=== PATIENT | female | born 1940 | race Caucasian/White ===

== ENCOUNTER → 2023-09-12 13:26 | Outpatient (REF) | payer MEDICARE, OTHER, SELFPAY | LOC: HWLAB 13:26 | PROVIDERS: ATTENDING PHYSICIAN Nurse Practitioner Family; FAMILY PHYSICIAN Family Medicine | DX: A49.8 Other bacterial infections of unspecified site (principal) | CPT/HCPCS: 87070; 87077; 87186; 87205 ==

== ENCOUNTER → 2023-10-09 13:18 | Outpatient (REF) | payer MEDICARE, OTHER, SELFPAY | LOC: HWLAB 13:18 | PROVIDERS: ATTENDING PHYSICIAN Nurse Practitioner Family; FAMILY PHYSICIAN Family Medicine | DX: A48.8 Other specified bacterial diseases (principal) | CPT/HCPCS: 87070; 87077; 87186; 87205 ==

== ENCOUNTER → 2023-10-13 13:27 | Outpatient (REF) | payer MEDICARE, OTHER, SELFPAY | LOC: HWLAB 13:27 | PROVIDERS: ATTENDING PHYSICIAN Nurse Practitioner Family; FAMILY PHYSICIAN Family Medicine | DX: J47.9 Bronchiectasis, uncomplicated (principal) | CPT/HCPCS: 87070; 87186; 87205 ==

== ENCOUNTER → 2023-11-23 14:31 | Outpatient (REF) | payer MEDICARE, OTHER, SELFPAY | LOC: HWRAD 14:31 | PROVIDERS: ATTENDING PHYSICIAN Specialist; FAMILY PHYSICIAN Family Medicine | DX: M48.062 Spinal stenosis, lumbar region with neurogenic claudication (principal) | CPT/HCPCS: 72120 ==

== ENCOUNTER → 2023-11-29 16:36 | Outpatient (REF) | payer MEDICARE, OTHER, SELFPAY ==
[2023-11-29 23:35] LABS: IgA 164 mg/dl (70-400); IgG 775 mg/dl (700-1600); IgM 66 mg/dl (40-230)
[2023-12-01 17:53] LABS: IgE 16 kU/L (<=214)
[2023-12-01 19:50] LABS: IgG Subclass 1 414 mg/dL (240-1118); IgG Subclass 2 171 mg/dL (124-549); IgG Subclass 3 57 mg/dL (21-134); IgG Subclass 4 53 mg/dL (1-123)
[2023-12-02 18:12] LABS: Myeloperoxidase Antibody 0 AU/mL (0-19); Serine Protease-3, IgG 0 AU/mL (0-19)
[2023-12-05 04:47] LABS: Aspergillus Abs by ID Not Detected (Not Detected)
== END ==
LOC: REG 16:36
PROVIDERS: ATTENDING PHYSICIAN Internal Medicine Critical Care Medicine
DX: R06.02 Shortness of breath (principal); Z87.01 Personal history of pneumonia (recurrent); J21.9 Acute bronchiolitis, unspecified; Z86.19 Personal history of other infectious and parasitic diseases
CPT/HCPCS: 36415; 82784; 82785; 82787; 83516; 86606

== ENCOUNTER → 2023-12-01 13:41 | Outpatient (REF) | payer MEDICARE, OTHER, SELFPAY | LOC: HWLAB 13:41 | PROVIDERS: ATTENDING PHYSICIAN Internal Medicine Critical Care Medicine; FAMILY PHYSICIAN Family Medicine | DX: R06.02 Shortness of breath (principal); Z87.01 Personal history of pneumonia (recurrent); J21.9 Acute bronchiolitis, unspecified | CPT/HCPCS: 87070; 87077; 87185; 87205 ==

== ENCOUNTER → 2023-12-06 10:24 | Outpatient (REF) | payer MEDICARE, OTHER, SELFPAY ==
[2023-12-06 16:57] LABS: TSH 1.09 uIU/ml (0.47-4.68)
== END ==
LOC: HWRAD 10:24
PROVIDERS: Otolaryngology; ATTENDING PHYSICIAN Internal Medicine Cardiovascular Disease; FAMILY PHYSICIAN Family Medicine; OTHER PHYSICIAN Internal Medicine Cardiovascular Disease; OTHER PHYSICIAN Specialist; REFERRING PHYSICIAN Internal Medicine Critical Care Medicine
DX: E04.2 Nontoxic multinodular goiter (principal); E07.9 Disorder of thyroid, unspecified
CPT/HCPCS: 36415; 76536; 84443; 93306

== ENCOUNTER → 2023-12-18 12:21 | Outpatient (REF) | payer MEDICARE, OTHER, SELFPAY | LOC: HWLAB 12:21 | PROVIDERS: ATTENDING PHYSICIAN Internal Medicine Critical Care Medicine; FAMILY PHYSICIAN Family Medicine | DX: J41.1 Mucopurulent chronic bronchitis (principal); J21.9 Acute bronchiolitis, unspecified; Z86.19 Personal history of other infectious and parasitic diseases; Z87.01 Personal history of pneumonia (recurrent) | CPT/HCPCS: 87070; 87071; 87077; 87185; 87205 ==

== ENCOUNTER → 2024-01-04 13:42 | Outpatient (REF) | payer MEDICARE, OTHER, SELFPAY | LOC: RAD 13:42 | PROVIDERS: ATTENDING PHYSICIAN Internal Medicine Cardiovascular Disease; FAMILY PHYSICIAN Family Medicine | DX: I73.9 Peripheral vascular disease, unspecified (principal) | CPT/HCPCS: 93922; 93925 ==

== ENCOUNTER → 2024-01-09 07:35 | Outpatient (REF) | payer MEDICARE, OTHER, SELFPAY ==
[2024-01-09 09:58] LABS: ALT (SGPT) 35 U/L (0-35); AST (SGOT) 38 U/L (14-36); Albumin 4.2 g/dl (3.5-5.0); Alkaline Phosphatase 80 U/L (38-126); Blood Urea Nitrogen 7 mg/dl (7-17); Calcium 9.5 mg/dl (8.4-10.2); Carbon Dioxide 29 mmol/L (22-30); Chloride 101 mmol/L (98-107); Direct Bilirubin 0.3 mg/dl (0.0-0.4); Glucose 71 mg/dl (70-99); Potassium 5.2 mmol/L (3.5-5.1); Sodium 136 mmol/L (135-145); Total Bilirubin 0.6 mg/dl (0.2-1.3); Total Cholesterol 260 mg/dl (50-199); Total Protein 6.8 g/dl (6.3-8.2); Triglyceride 57 mg/dl (10-149); Very Low Density Lipoprotein 11 mg/dl (0-30); eGFR > 60.00
[2024-01-09 10:09] LABS: HDL Cholesterol 140 mg/dl; LDL Cholesterol, Calculated 109 mg/dl
== END ==
LOC: HWLAB 07:35
PROVIDERS: ATTENDING PHYSICIAN Internal Medicine Cardiovascular Disease; FAMILY PHYSICIAN Family Medicine; OTHER PHYSICIAN Internal Medicine Critical Care Medicine; OTHER PHYSICIAN Internal Medicine Rheumatology; REFERRING PHYSICIAN Specialist
DX: E78.2 Mixed hyperlipidemia (principal)
CPT/HCPCS: 36415; 80053; 80061; 82248

== ENCOUNTER → 2024-02-05 11:23 | Outpatient (REF) | payer MEDICARE, OTHER, SELFPAY | LOC: HWWDC 11:23 | PROVIDERS: ATTENDING PHYSICIAN Obstetrics & Gynecology; FAMILY PHYSICIAN Family Medicine; REFERRING PHYSICIAN Specialist | DX: Z12.31 Encounter for screening mammogram for malignant neoplasm of breast (principal); M48.062 Spinal stenosis, lumbar region with neurogenic claudication | CPT/HCPCS: 72120; 77063; 77067 ==

== ENCOUNTER → 2024-02-07 07:39 | Outpatient (REF) | payer MEDICARE, OTHER, SELFPAY | LOC: EMG 07:39 | PROVIDERS: ATTENDING PHYSICIAN Specialist | DX: M48.062 Spinal stenosis, lumbar region with neurogenic claudication (principal); R20.0 Anesthesia of skin | CPT/HCPCS: 95886; 95910 ==

== ENCOUNTER → 2024-04-03 13:16 | Outpatient (REF) | payer MEDICARE, OTHER, SELFPAY | LOC: MRI 3T 13:16 | PROVIDERS: ATTENDING PHYSICIAN Internal Medicine Endocrinology, Diabetes & Metabolism; FAMILY PHYSICIAN Family Medicine | DX: K86.2 Cyst of pancreas (principal) | CPT/HCPCS: 74183; A9575 ==

== ENCOUNTER → 2024-05-08 07:34 | Outpatient (REF) | payer MEDICARE, OTHER, SELFPAY ==
[2024-05-08 09:41] LABS: % Basophils 0.8 % (0-2); % Eosinophils 5.8 % (0-6); % Immature Granulocytes 0.5 % (0-0.5); % Lymphocytes 27.8 % (20.5-51.1); % Monocytes 9.7 % (1.7-9.3); % Neutrophils 55.4 % (42.2-75.2); Absolute Basophils 0.1 10^3/uL (0-0.2); Absolute Eosinophils 0.4 10^3/uL (0-0.7); Absolute Lymphocytes 1.8 10^3/uL (1.2-3.4); Absolute Monocytes 0.6 10^3/uL (0.1-0.6); Absolute Neutrophils 3.6 10^3/uL (1.4-6.5); Hematocrit 40.9 % (37.0-47.0); Hemoglobin 13.7 g/dL (12.0-16.0); Mean Corp Hgb Conc. 33.5 g/dL (33.0-37.0); Mean Corpuscular Hgb 30.6 pg (27.0-31.0); Mean Corpuscular Volume 91.3 fL (81.0-99.0); Mean Platelet Volume 9.3 fL (7.4-10.4); Nucleated Red Blood Cells % 0 %; Platelet Count 356 10^3/uL (130-400); Red Blood Cell Count 4.48 10^6/uL (4.20-5.40); Red Cell Dist. Width 14.5 % (11.5-14.5); White Blood Cell Count 6.4 10^3/uL (4.8-10.8)
[2024-05-08 10:06] LABS: ALT (SGPT) 30 U/L (0-35); AST (SGOT) 36 U/L (14-36); Albumin 4.1 g/dl (3.5-5.0); Alkaline Phosphatase 86 U/L (38-126); Blood Urea Nitrogen 11 mg/dl (7-17); Calcium 9.3 mg/dl (8.4-10.2); Carbon Dioxide 26 mmol/L (22-30); Chloride 99 mmol/L (98-107); Glucose 79 mg/dl (70-99); Sodium 138 mmol/L (135-145); Total Bilirubin 0.7 mg/dl (0.2-1.3); Total Protein 6.3 g/dl (6.3-8.2); eGFR > 60.00
== END ==
LOC: HWLAB 07:34
PROVIDERS: ATTENDING PHYSICIAN Internal Medicine Rheumatology; FAMILY PHYSICIAN Family Medicine
DX: E55.9 Vitamin D deficiency, unspecified (principal); M81.0 Age-related osteoporosis without current pathological fracture; Z13.820 Encounter for screening for osteoporosis; Z68.26 Body mass index [BMI] 26.0-26.9, adult; Z79.899 Other long term (current) drug therapy
CPT/HCPCS: 36415; 80053; 82306; 85025

== ENCOUNTER → 2024-05-23 15:21 | Outpatient (REF) | payer MEDICARE, OTHER, SELFPAY | LOC: HWRAD 15:21 | PROVIDERS: ATTENDING PHYSICIAN Specialist; FAMILY PHYSICIAN Family Medicine; REFERRING PHYSICIAN Orthopaedic Surgery | DX: M19.012 Primary osteoarthritis, left shoulder (principal) | CPT/HCPCS: 73200 ==

== ENCOUNTER → 2024-06-13 14:42 | Outpatient (REF) | payer MEDICARE, OTHER, SELFPAY | LOC: HWRAD 14:42 | PROVIDERS: ATTENDING PHYSICIAN Internal Medicine Rheumatology; FAMILY PHYSICIAN Family Medicine; REFERRING PHYSICIAN Specialist | DX: M81.0 Age-related osteoporosis without current pathological fracture (principal); Z13.820 Encounter for screening for osteoporosis; M25.559 Pain in unspecified hip | CPT/HCPCS: 73522 ==

== ENCOUNTER → 2024-06-18 19:48 | Outpatient (REF) | payer MEDICARE, OTHER, SELFPAY | LOC: MRI 19:48 | PROVIDERS: ATTENDING PHYSICIAN Specialist; FAMILY PHYSICIAN Family Medicine | DX: M54.16 Radiculopathy, lumbar region (principal); M16.12 Unilateral primary osteoarthritis, left hip | CPT/HCPCS: 72148; 73721 ==

== ENCOUNTER → 2024-07-15 08:21 | Outpatient (REF) | payer MEDICARE, OTHER, SELFPAY ==
[2024-07-15 09:39] LABS: % Basophils 0.8 % (0-2); % Eosinophils 3.8 % (0-6); % Immature Granulocytes 0.4 % (0-0.5); % Lymphocytes 25.8 % (20.5-51.1); % Monocytes 16.1 % (1.7-9.3); % Neutrophils 53.1 % (42.2-75.2); Absolute Eosinophils 0.2 10^3/uL (0-0.7); Absolute Lymphocytes 1.2 10^3/uL (1.2-3.4); Absolute Monocytes 0.8 10^3/uL (0.1-0.6); Absolute Neutrophils 2.5 10^3/uL (1.4-6.5); Hematocrit 40.7 % (37.0-47.0); Hemoglobin 13.3 g/dL (12.0-16.0); Mean Corp Hgb Conc. 32.7 g/dL (33.0-37.0); Mean Corpuscular Hgb 30.2 pg (27.0-31.0); Mean Corpuscular Volume 92.3 fL (81.0-99.0); Nucleated Red Blood Cells % 0 %; Platelet Count 362 10^3/uL (130-400); Red Blood Cell Count 4.41 10^6/uL (4.20-5.40); Red Cell Dist. Width 14.6 % (11.5-14.5); White Blood Cell Count 4.7 10^3/uL (4.8-10.8)
[2024-07-15 10:26] LABS: ALT (SGPT) 32 U/L (0-35); AST (SGOT) 39 U/L (14-36); Albumin 4.1 g/dl (3.5-5.0); Alkaline Phosphatase 57 U/L (38-126); Blood Urea Nitrogen 10 mg/dl (7-17); Calcium 9.1 mg/dl (8.4-10.2); Carbon Dioxide 30 mmol/L (22-30); Chloride 102 mmol/L (98-107); Glucose 74 mg/dl (70-99); HDL Cholesterol 98 mg/dl; LDL Cholesterol, Calculated 86 mg/dl; Potassium 4.6 mmol/L (3.5-5.1); Sodium 142 mmol/L (135-145); Total Bilirubin 0.5 mg/dl (0.2-1.3); Total Cholesterol 195 mg/dl (50-199); Total Protein 6.4 g/dl (6.3-8.2); Triglyceride 57 mg/dl (10-149); Very Low Density Lipoprotein 11 mg/dl (0-30); eGFR > 60.00
[2024-07-15 10:55] LABS: Ferritin 90.8 ng/ml (11.1-264.0)
== END ==
LOC: HWLAB 08:21
PROVIDERS: ATTENDING PHYSICIAN Family Medicine
DX: G25.81 Restless legs syndrome (principal); Z86.73 Personal history of transient ischemic attack (TIA), and cerebral infarction without residual deficits; I70.0 Atherosclerosis of aorta
CPT/HCPCS: 36415; 80053; 80061; 82728; 85025

== ENCOUNTER → 2024-08-28 12:49 | Outpatient (REF) | payer MEDICARE, OTHER, SELFPAY ==
[2024-08-28 15:59] LABS: % Basophils 0.5 % (0-2); % Eosinophils 3.7 % (0-6); % Immature Granulocytes 0.2 % (0-0.5); % Lymphocytes 27.4 % (20.5-51.1); % Neutrophils 61.2 % (42.2-75.2); Absolute Eosinophils 0.2 10^3/uL (0-0.7); Absolute Lymphocytes 1.6 10^3/uL (1.2-3.4); Absolute Monocytes 0.4 10^3/uL (0.1-0.6); Absolute Neutrophils 3.7 10^3/uL (1.4-6.5); Hematocrit 41.7 % (37.0-47.0); Hemoglobin 13.5 g/dL (12.0-16.0); Mean Corp Hgb Conc. 32.4 g/dL (33.0-37.0); Mean Corpuscular Hgb 30.2 pg (27.0-31.0); Mean Corpuscular Volume 93.3 fL (81.0-99.0); Mean Platelet Volume 9.4 fL (7.4-10.4); Nucleated Red Blood Cells % 0 %; Platelet Count 412 10^3/uL (130-400); Red Blood Cell Count 4.47 10^6/uL (4.20-5.40); Red Cell Dist. Width 15.3 % (11.5-14.5)
[2024-08-28 16:08] LABS: Erythrocyte Sed Rate 12 mm/hour (0-20)
[2024-08-28 16:12] LABS: C-Reactive Protein < 5.00 mg/L (0.0-10.00)
[2024-08-29 13:13] LABS: Lyme Antibody Screen, EIA Negative (Negative)
== END ==
LOC: HWLAB 12:49
PROVIDERS: ATTENDING PHYSICIAN Registered Nurse
DX: M79.10 Myalgia, unspecified site (principal)
CPT/HCPCS: 36415; 85025; 85652; 86140; 86618

== ENCOUNTER → 2024-09-03 12:10 | Outpatient (REF) | payer MEDICARE, OTHER, SELFPAY ==
[2024-09-03 15:51] LABS: Creatine Phosphokinase 75 U/L (30-135)
== END ==
LOC: HWLAB 12:10
PROVIDERS: ATTENDING PHYSICIAN Internal Medicine Rheumatology; FAMILY PHYSICIAN Family Medicine
DX: M79.10 Myalgia, unspecified site (principal)
CPT/HCPCS: 36415; 82550

== ENCOUNTER → 2024-10-25 08:59 | Outpatient (REF) | payer MEDICARE, OTHER, SELFPAY ==
[2024-10-25 10:49] LABS: Urine Albumin Negative (Neg - Trace); Urine Bilirubin Negative (Negative); Urine Character Clear (Clear); Urine Color Yellow; Urine Glucose Negative (Negative); Urine Ketone Negative (Negative); Urine Leukocyte Negative (Negative); Urine Nitrite Negative (Negative); Urine Occult Blood Negative (Negative); Urine Urobilinogen Negative (Neg - 1+)
[2024-10-25 11:08] LABS: % Basophils 0.4 % (0-2); % Eosinophils 1.9 % (0-6); % Immature Granulocytes 0.4 % (0-0.5); % Lymphocytes 21.1 % (20.5-51.1); % Monocytes 7.1 % (1.7-9.3); % Neutrophils 69.1 % (42.2-75.2); Absolute Eosinophils 0.2 10^3/uL (0-0.7); Absolute Lymphocytes 1.7 10^3/uL (1.2-3.4); Absolute Monocytes 0.6 10^3/uL (0.1-0.6); Absolute Neutrophils 5.4 10^3/uL (1.4-6.5); Hematocrit 41.5 % (37.0-47.0); Hemoglobin 13.4 g/dL (12.0-16.0); Mean Corp Hgb Conc. 32.3 g/dL (33.0-37.0); Mean Corpuscular Hgb 29.6 pg (27.0-31.0); Mean Corpuscular Volume 91.6 fL (81.0-99.0); Mean Platelet Volume 9.4 fL (7.4-10.4); Nucleated Red Blood Cells % 0 %; Platelet Count 321 10^3/uL (130-400); Red Blood Cell Count 4.53 10^6/uL (4.20-5.40); Red Cell Dist. Width 14.6 % (11.5-14.5); White Blood Cell Count 7.9 10^3/uL (4.8-10.8)
[2024-10-25 11:49] LABS: ALT (SGPT) 24 U/L (0-35); AST (SGOT) 29 U/L (14-36); Alkaline Phosphatase 90 U/L (38-126); Blood Urea Nitrogen 11 mg/dl (7-17); Calcium 9.2 mg/dl (8.4-10.2); Carbon Dioxide 27 mmol/L (22-30); Chloride 102 mmol/L (98-107); Glucose 86 mg/dl (70-99); Potassium 4.9 mmol/L (3.5-5.1); Sodium 136 mmol/L (135-145); Total Bilirubin 0.5 mg/dl (0.2-1.3); Total Protein 6.3 g/dl (6.3-8.2); eGFR > 60.00
[2024-10-25 12:18] LABS: TSH Reflex To Free T4 2.42 uIU/ml (0.47-4.68)
[2024-10-25 12:54] LABS: Folate > 20.0 ng/ml (2.76-20); Vitamin B12 969 pg/ml (239-931)
== END ==
LOC: RAD 08:59
PROVIDERS: ATTENDING PHYSICIAN Family Medicine; OTHER PHYSICIAN Internal Medicine Cardiovascular Disease; REFERRING PHYSICIAN Internal Medicine Rheumatology
DX: R51.9 Headache, unspecified (principal); Z91.81 History of falling; R26.81 Unsteadiness on feet; R26.89 Other abnormalities of gait and mobility; E55.9 Vitamin D deficiency, unspecified; M11.20 Other chondrocalcinosis, unspecified site; M19.041 Primary osteoarthritis, right hand; M19.042 Primary osteoarthritis, left hand; M81.0 Age-related osteoporosis without current pathological fracture; Z13.820 Encounter for screening for osteoporosis; Z79.899 Other long term (current) drug therapy; N32.81 Overactive bladder
CPT/HCPCS: 36415; 70450; 80053; 81003; 82607; 82746; 84443; 85025; 87086

== ENCOUNTER → 2024-11-18 16:47 | Outpatient (REF) | payer MEDICARE, OTHER, SELFPAY ==
[2024-11-18 18:04] LABS: ALT (SGPT) 25 U/L (0-35); AST (SGOT) 31 U/L (14-36); Albumin 4.6 g/dl (3.5-5.0); Alkaline Phosphatase 81 U/L (38-126); Blood Urea Nitrogen 12 mg/dl (7-17); Calcium 9.5 mg/dl (8.4-10.2); Carbon Dioxide 30 mmol/L (22-30); Chloride 103 mmol/L (98-107); Glucose 93 mg/dl (70-99); Potassium 4.3 mmol/L (3.5-5.1); Sodium 139 mmol/L (135-145); Total Bilirubin 0.6 mg/dl (0.2-1.3); Total Protein 6.8 g/dl (6.3-8.2); eGFR > 60.00
[2024-11-18 18:20] LABS: Vitamin D, 25-OH*** 66.5 ng/mL (30-80)
[2024-11-18 19:09] LABS: Folate > 20.0 ng/ml (2.76-20); Vitamin B12 890 pg/ml (239-931)
== END ==
LOC: REG 16:47
PROVIDERS: ATTENDING PHYSICIAN Physician Assistant; FAMILY PHYSICIAN Family Medicine
DX: E55.9 Vitamin D deficiency, unspecified (principal); M81.0 Age-related osteoporosis without current pathological fracture; Z79.899 Other long term (current) drug therapy
CPT/HCPCS: 36415; 80053; 82306; 82607; 82746

== ENCOUNTER → 2024-11-29 15:02 | Outpatient (REF) | payer MEDICARE, OTHER, SELFPAY | LOC: RAD 15:02 | PROVIDERS: ATTENDING PHYSICIAN Family Medicine | DX: J44.1 Chronic obstructive pulmonary disease with (acute) exacerbation (principal) | CPT/HCPCS: 71046 ==

== ENCOUNTER → 2024-12-16 11:22 | Outpatient (REF) | payer MEDICARE, OTHER, SELFPAY ==
[2024-12-16 16:47] LABS: TSH 1.23 uIU/ml (0.47-4.68)
== END ==
LOC: HWRAD 11:22
PROVIDERS: ATTENDING PHYSICIAN Otolaryngology; FAMILY PHYSICIAN Family Medicine
DX: E04.0 Nontoxic diffuse goiter (principal); E07.9 Disorder of thyroid, unspecified
CPT/HCPCS: 36415; 76536; 84443

== ENCOUNTER 2025-01-05 15:55 | Observation (INO) | payer MEDICARE, OTHER, SELFPAY ==
[2025-01-05] VITALS (16 sets, daily range): BP systolic 111–153; BP diastolic 47–80; PULSE 60–67; BMI 24.5
--- NOTE | 2025-01-05 11:10 | EDRN ---
Pt examined by Lacy WANG and found to have ataxia and swaying on attempting to walk. Pt moved from room #35 to room #37 for monitoring. Pt is to be ordered CTA not plain CT.
--- NOTE | 2025-01-05 11:20 | ED.GENMED ---
History of Present Illness
General
Chief Complaint: Head Injury
Source: patient
Exam Limitations: none
Time Seen by Provider: 01/05/25 10:51
Nursing documentation reviewed up to this point in time: agreed with
History of Present Illness
History of Present Illness:
Patient is an 84-year-old female with a history of emphysema, ex-smoker
Presents after she bumped her head last night on a tall dresser when she was taking off her slippers in the dark. Patient says she had no loss of consciousness and did not fall. She had minor pain to the right religion region where she bumped her
head. She ended up walking to bed and went to sleep. Patient woke up this morning and tried to get up to walk normally and she feels like her balance is significantly off. She says she does not 'feel right' but is mostly related to her balance
and she feels like she is swaying. Patient says she normally does not use any assistance to walk. She has no headache or tenderness where the head strike was on the right religion but she says over the last 4 to 5 days she has had pain in the back
of her right occiput which is not tender, not swollen and it has been constant at about a 4 out of 10. Patient takes tramadol for chronic pain but did not take anything today and is requesting something for the headache. She says the pain in the
back of her head she has had before, maybe 2 or 3 months ago she told her doctor about it but never had any issues walking. She denies any numbness or tingling or weakness in her arms or legs, no facial droop, no blurred vision, no scalp
sensitivity, no chest pain or shortness of breath, patient's been eating normally.
Past History
Past History
ED Past Medical History: COPD, Hypercholesterolemia and Other (osteopenia, cholelithiasis, atrioseptal aneurysm, memory loss, COVID-19, UTI)
ED Past Surgical History: Appendectomy, Cholecystectomy, Orthopedic (bilateral knee replacement, epidural steroid injections, lumbar 2020; right leg fracture) and Other (negative thyroid biopsy 2018, cataract extractions)
Social History
Tobacco: Former smoker
Alcohol: Occasional
Drug: None
Personal: Single
Living: alone
Employment: Retired
Family History
Family History: Other (reviewed and noncontributory); Negative CAD
Review of Systems
Review of Systems
Allergies reviewed?: Yes
All Other Systems: Not applicable
Phy Exam
Physical Exam
Physical Exam:
GENERAL: Alert , in no apparent distress
HEAD: NCAT
EYE: pupils equal and reactive, no nystagmus, minimal photophobia
NECK: Supple,full rom, nontender
ENT: o/p clr, mmm.
CARDIAC: Regular rate and rhythm . no edema
LUNGS: Clear breath sounds bilaterally, no acute respiratory distress, no wheezes/rales/rhonchi
ABDOMEN: Soft, without focal tenderness, no r/g, no cvat
NEUROLOGICAL: Alert and orientedx 4, cn intact, no facial asymmetry, 5/5 strength in UE/LE, sensation intact, Romberg is positive, negative pronator drift, patient cannot ambulate, she is significantly ataxic, cannot put her feet together and stand,
needed to hold on. She swaying and falling backwards towards the bed.
SKIN: Warm and dry, skin intact.
MUSCULOSKELETAL: No edema, well perfused.
PSYCH: Normal and appropriate interaction.
Course
Orders/Labs/Results
Orders:
Orders
01/05/25 11:09
Electrocardiogram (*1) Urgent
Reason for Study: Vertigo / Dizzy
CT Head & Neck Angio W/wo IV Urgent
Comment:
Reason For Exam: ataxia R posterior head pain, hit head yesterday
EKG- Treatment ONCE
Orthostatic VS- Treatment ONCE
01/05/25 11:13
CT Head W/o Iv Contrast Urgent
Comment:
Reason For Exam: head trauma, new ataxia
01/05/25 12:06
Complete Blood Count/With Diff Urgent
Comprehensive Metabolic Panel Urgent
PTT Urgent
Prothrombin Time Urgent
01/05/25 12:07
Acetaminophen [Tylenol] 650 mg PO NOW STA
Abnormal Lab Results
01/05/25
12:06
RDW 15.6 H %
(11.5-14.5)
Abs Immat Gran (auto) 0.1 H 10^3/uL
(0-0.05)
Absolute Neuts (auto) 6.8 H 10^3/uL
(1.4-6.5)
Absolute Monos (auto) 0.9 H 10^3/uL
(0.1-0.6)
Immature Gran % 1.1 H %
(0-0.5)
Lymphocytes % 16.8 L %
(20.5-51.1)
Monocytes % 9.4 H %
(1.7-9.3)
Carbon Dioxide 31 H mmol/L
(22-30)
Creatinine 0.5 L mg/dL
(0.6-1.0)
Total Protein 6.1 L g/dl
(6.3-8.2)
01/05/25 12:06
01/05/25 12:06
Vital Signs
Initial and Last Documented VS:
Initial Vital Signs
Temp Pulse Resp BP Pulse Ox
36.8 C 93 16 126/70 98
01/05/25 10:05 01/05/25 10:05 01/05/25 10:05 01/05/25 10:05 01/05/25 10:05
Last Documented Vital Signs
Temp Pulse Resp BP Pulse Ox
36.8 C 66 16 116/61 95
01/05/25 10:05 01/05/25 14:30 01/05/25 14:30 01/05/25 14:00 01/05/25 14:30
MDM/Problems Addressed
Differential Diagnosis Includes:
vertebral stroke, bleed, mass, dissection,
MDM/Problems Addressed:
catherine bernard
4-5 days of R posterior headache, no problems walking
then yesterday accidentally hit R religion on furniture; no fall; no LOC; went to bed
woke up and is ataxic; she cannot walk without holding on; no report of dizziness; no significant headache symptoms, mild R posterior headache; no nausea/vomiting/concussive symptoms
ct head neg
cta has some stenosis:
L subclvaian artery 67%
prox internal carotids are OK
beaded appearnce of cervical R internal carotid artery without highgrade stenosis
mod narrowing of vertebral arteries b/l v3/v4 portions
d/w dr. goodrich from neurology
andrey admit for MRI for ataxia
*Critical Care Note
Total Time (30-74mins, 75-104mins- exclusive of procedures): Not Applicable
ED Attending Note
-
Portions of this chart may have been created with voice recognition software.� Occasional wrong word or��sound alike� substitutions may have occurred due to the inherent limitations of voice recognition software.
Discharge Plan
Departure
Patient Disposition: Admit
Date of Disposition: 01/05/25
Time of Disposition: 14:46
Admit to: Telemetry
Presentation/result/management discussed w/ accepting MD/DO: Hospitalist
Condition: Fair
Covid-19: Not Applicable
Discharge Problem:
Ataxia
Prescriptions:
No Action
pravastatin 40 MG tablet
40 mg PO HS
sertraline 25 MG tablet
37.5 mg PO HS
cholecalciferol (vitamin D3) 1,000 UNITS tablet
1,000 units PO DAILY
multivitamin with folic acid [Tab-A-Kai] 1 TABLET tablet
1 tab PO DAILY
milk thistle 150 MG capsule
1 cap PO DAILY
turmeric root extract 500 MG capsule
500 mg PO DAILY
pomegranate fruit extract 250 MG capsule
250 mg PO DAILY
Green Tea (w/Met.Enhan.Blend) 1 EACH tablet
1 ea PO DAILY
Caltrate-D3 Plus Minerals 1 EACH tablet
1 ea PO DAILY
elderberry fruit and flower 1 EACH capsule
1 ea PO DAILY
latanoprost 0.005 % Drops
1 drp BOTH EYES HS
ipratropium-albuterol [DuoNeb] 0.5 mg-3 mg(2.5 mg base)/3 mL Solution For Nebulization
3 ml INHALATION R TID
sodium chloride 3 % Solution For Nebulization
4 ml INHALATION R TID
tramadol 50 mg Tablet
50 mg PO BIDPRN PRN (Reason: moderate pains)
budesonide 0.5 mg/2 mL Suspension For Nebulization
0.5 mg INHALATION R TID
Refresh Optive 0.5-0.9 % Drops
1 drp BOTH EYES BID
aspirin 81 mg tablet,chewable
81 mg PO MOWEFR
Referrals:
Rylee Whitmore MD [Family Provider] -
Interventions
Interventions:
*Risk Screen - Suicide Last Done: 01/05/25 12:07
*General Assessment Last Done: 01/05/25 12:07
*Neglect/Abuse Screening Last Done: 01/05/25 12:07
*ED- Fall Risk Assessment Last Done: 01/05/25 12:07
*ED COVID-19 Vaccine History Last Done: 01/05/25 12:07
ED- Neurological Assessment Last Done: 01/05/25 12:30
ED-Skin Assessment Last Done: 01/05/25 12:14
Discharge Date and Time
Print Language: CITIZEN OF [place]
--- NOTE | 2025-01-05 11:25 | EDRN ---
Pt placed on compliance monitor at this time.
--- NOTE | 2025-01-05 11:59 | EDRN ---
Pt remains in CT at this time.
[2025-01-05 12:16] LABS: % Basophils 0.5 % (0-2); % Eosinophils 2.3 % (0-6); % Immature Granulocytes 1.1 % (0-0.5); % Lymphocytes 16.8 % (20.5-51.1); % Monocytes 9.4 % (1.7-9.3); % Neutrophils 69.9 % (42.2-75.2); Absolute Basophils 0.1 10^3/uL (0-0.2); Absolute Eosinophils 0.2 10^3/uL (0-0.7); Absolute Immature Granulocytes 0.1 10^3/uL (0-0.05); Absolute Lymphocytes 1.7 10^3/uL (1.2-3.4); Absolute Monocytes 0.9 10^3/uL (0.1-0.6); Absolute Neutrophils 6.8 10^3/uL (1.4-6.5); Hematocrit 37.4 % (37.0-47.0); Hemoglobin 12.5 g/dL (12.0-16.0); Mean Corp Hgb Conc. 33.4 g/dL (33.0-37.0); Mean Corpuscular Hgb 29.8 pg (27.0-31.0); Mean Platelet Volume 9.1 fL (7.4-10.4); Nucleated Red Blood Cells % 0 %; Platelet Count 362 10^3/uL (130-400); Red Cell Dist. Width 15.6 % (11.5-14.5); White Blood Cell Count 9.8 10^3/uL (4.8-10.8)
--- NOTE | 2025-01-05 12:20 | EDRN ---
Pt ambulates side to side. Pt needed assist of 1 to get to BR at this time.
[2025-01-05 12:24] LABS: INR 0.88; PT 12.2 Sec (11.4-14.6)
[2025-01-05 12:25] LABS: APTT 23.9 Sec (23.4-35.0)
[2025-01-05 12:29] LABS: ALT (SGPT) 23 U/L (0-35); AST (SGOT) 26 U/L (14-36); Albumin 3.9 g/dl (3.5-5.0); Alkaline Phosphatase 78 U/L (38-126); Blood Urea Nitrogen 16 mg/dl (7-17); Calcium 9.6 mg/dl (8.4-10.2); Carbon Dioxide 31 mmol/L (22-30); Chloride 105 mmol/L (98-107); Estimated Creatinine Clearance 51 ml/min; Glucose 86 mg/dl (70-99); Potassium 4.3 mmol/L (3.5-5.1); Sodium 138 mmol/L (135-145); Total Bilirubin 0.6 mg/dl (0.2-1.3); Total Protein 6.1 g/dl (6.3-8.2); eGFR > 60.00
[2025-01-05] MEDS: TYLENOL 650 MG PO (12:33)
--- NOTE | 2025-01-05 14:39 | EDRN ---
Lacy WANG in room w/ pt at this time.
--- NOTE | 2025-01-05 14:51 | EDRN ---
Pt was given menu to look over to order her dinner.
--- NOTE | 2025-01-05 15:14 | EDRN ---
Pt ambulated to BR w/ assist of one and on turning to return to stretcher from sink pt almost fell w/ this RN catching her from falling.
--- NOTE | 2025-01-05 15:15 | HPS.HSE ---
Family Physician
-
Family Physician: Rylee Whitmore MD
Chief Complaint
-
Lt post LAGUNAS, balance dysfunction
History of Present Illness
84F HX COPD, Anxiety and depression seen at ER:
- report 4 days R posterior headache
- last night bumped R religion accidentally and had some pain but not LOC
- this am is ataxic; can't walk without holding on, not dizzy, not lightheaded;
At ER
NEG HCT
H & N CTA show some stenosis, but not hemodynamically significant for LAGUNAS and ataxia
Medical History
Past Medical History
Past Medical History: Reports Other (COPD, hyperlipidemia )
Past Surgical History: Reports None
Social History
Tobacco: Former Smoker
Alcohol: Occasional
Drug: None
Family History
Family History: Not pertinent
Allergies / Home Medications
Allergies reflects when Allergies were last updated in [facility].
Home Medications with original date entered in [facility]
Allergy/Medication List:
Allergies
Allergy/AdvReac Type Severity Reaction Status Date / Time
codeine [Codeine] Allergy Pharmacy Verified 10/30/20 12:28
to Review
levofloxacin [From Levaquin] Allergy Unknown Verified 10/30/20 12:28
Home Medications
tiotropium bromide 18 mcg capsule with inhalation device (Spiriva with HandiHaler) 1 puff inhalation R DAILY 10/18/11
calcium carb 300 mg-D3 800 unit-mag ox 25 mg-presidential helicopter crew chief 0.5 mg-eva-Zn tablet (Caltrate + D3 Plus Minerals) 1 ea PO DAILY 02/01/22
cholecalciferol (vitamin D3) 25 mcg (1,000 unit) tablet 1,000 units PO DAILY 02/01/22
chromium nicotinate glycinate 250 mcg-herbal no.238 775 mg tablet (Green Tea (with Metabolic Enhancer Blend)) 1 ea PO DAILY 02/01/22
coenzyme Y75-minxywc E 100 mg-100 unit capsule 100 mg PO BID 02/01/22
elderberry fruit 460 mg-elderberry flower 115 mg capsule 1 ea PO DAILY 02/01/22
fluticasone 250 mcg-salmeterol 50 mcg/dose blistr powdr for inhalation (Wixela Inhub) 2 puff IH R BID 02/01/22
milk thistle 150 mg capsule 1 cap PO DAILY 02/01/22
multivitamin with folic acid 400 mcg tablet (Tab-A-Kai) 1 tab PO DAILY 02/01/22
pomegranate fruit extract 250 mg capsule 250 mg PO DAILY 02/01/22
pravastatin 40 mg tablet 40 mg PO HS 02/01/22
sertraline 25 mg tablet 37.5 mg PO HS 02/01/22
trazodone 50 mg tablet 12.5 mg PO HS 02/01/22
turmeric root extract 500 mg capsule 500 mg PO DAILY 02/01/22
Review of Systems
-
Constitutional: Reports No Symptoms
EENT: Reports No Symptoms
Respiratory: Reports No Symptoms
Cardiac: Reports No Symptoms
Abdomen/GI: Reports No Symptoms
: Reports No Symptoms
Musculoskeletal: Reports No Symptoms
Skin: Reports No Symptoms
Neurological: Reports See HPI
Endocrine: Reports No Symptoms
Hematologic/Lymphatic: Reports No Symptoms
Psych: Reports No Symptoms
Physical Exam
Vital Signs
Vital Signs
Temp Pulse Resp BP Pulse Ox
98.3 F 66 14 134/67 96
01/05/25 10:05 01/05/25 15:00 01/05/25 15:00 01/05/25 15:00 01/05/25 15:00
Physical Exam
General: Well Developed, Well Nourished and No Apparent Distress
HEENT: NormoCephalic, Moist mucous membranes and Atraumatic
Respiratory: Clear
Cardiac: S1/S2 and Regular Rhythm; No Murmur or Rub
GI: Soft, Non Tender, Non Distended and Normal Bowel Sounds; No Organomegaly
Rectal: Deferred by Provider
Musculoskeletal: No Clubbing, No Cyanosis and No Edema
Skin: No Rash
Neuro: Nonfocal/grossly intact
Laboratory Results
-
01/05/25 12:06
01/05/25 12:06
Laboratory Results
PT 12.2 Sec (11.4-14.6) 01/05/25 12:06
INR 0.88 01/05/25 12:06
APTT 23.9 Sec (23.4-35.0) 01/05/25 12:06
Total Bilirubin 0.6 mg/dl (0.2-1.3) 01/05/25 12:06
AST 26 U/L (14-36) 01/05/25 12:06
ALT 23 U/L (0-35) 01/05/25 12:06
Alkaline Phosphatase 78 U/L (38-126) 01/05/25 12:06
Data Reviewed
-
CT Scan: Report Reviewed by me
Lab Data: Labs Reviewed by me
Old Records: Reviewed
Impression/Plan
-
Vital Signs
Temp Pulse Resp BP Pulse Ox
98.3 F 66 14 134/67 96
01/05/25 10:05 01/05/25 15:00 01/05/25 15:00 01/05/25 15:00 01/05/25 15:00
Abnormal Lab Results
01/05/25
12:06
RDW 15.6 H
Abs Immat Gran (auto) 0.1 H
Absolute Neuts (auto) 6.8 H
Absolute Monos (auto) 0.9 H
Immature Gran % 1.1 H
Lymphocytes % 16.8 L
Monocytes % 9.4 H
Carbon Dioxide 31 H
Creatinine 0.5 L
Total Protein 6.1 L
NEG HCT
H & N CTA
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
- No evidence for hemodynamically significant stenosis of the carotid bulbs or proximal internal carotid arteries bilaterally.
- 'Beaded' appearance of the cervical right internal carotid artery, appearance fairly characteristic for fibromuscular dysplasia, with no evidence of a high-grade stenosis.
- Of note, no convincing evidence for fibromuscular dysplasia involving the cervical portion of the left ICA.
- Moderate narrowing of the vertebral arteries bilaterally at the junction of the V3 and V4 portions, as the vertebral arteries become intradural.
No significant narrowing of the basilar artery or the posterior cerebral arteries.
12/06/23 TTE
Normal left ventricular size, wall thickness and systolic function. No regional wall motion abnormalities are seen.
LV ejection fraction is 67 % by Motley's method of discs. Normal diastolic function.
Trileaflet aortic valve. Thickened aortic valve with normal leaflet excursion.
Aortic sclerosis without stenosis. Trace aortic regurgitation.
Plaque seen in the ascending and descending aorta.
Since echocardiogram June 2019, there is no significant change.
Last hospitalist admission: 05/03/2022 - 05/04/2022
DISCHARGE DIAGNOSES:
1. Possible transient ischemic attack versus symptomatic orthostatic hypotension.
2. Hyperlipidemia.
ASSESSMENT & PLAN
Acute non tender post Rt occipital LAGUNAS
Associated subjective balance dysfunction
S/P bumped to Lt temporal head with tall furniture
- NEG HCT
- NEG CTA H& N for hemodynamically significant and clinically correlated stenosis for Lt occipital LAGUNAS
- Tylenol PRN
- PT
- Neurologist consulted suggest Brain MRI in AM
Evidence for hemodynamically significant stenosis of the proximal left subclavian arterydiameter reduction of 67%.
- to consider OP vascular consult
HX TIA
HLD
- cont ASA and Pravastatin
COPD
-Continue Spiriva
Anxiety/depression
-Continue sertraline
Insomnia
-Continue trazodone
DVT prophylaxis�SCDs
Full code
OBS [place]
--- NOTE | 2025-01-05 16:24 | CM ---
Patient seen at bedside in ED. Patient stated that she lives with friend and that she is in a one floor home. Patient has PCP Dr. Whitmore and her Pharmacy is [facility] in [place]. Patient has no DME at home and states she is independent. Patient biggest
concern is that she is to have surgery at another hospital and was asking questions about SNF options as her friend will not be available. CM provided information and answered all questions as able. Patient reviewed possible OBS vs INP and indicated
that she would ask further questions of physician. Patient plan is for discharge home with no needs at this time. CM will continue to follow for discharge planning needs.
Plan; home with no needs; will need OBS form pending physician decision
--- NOTE | 2025-01-05 16:36 | EDRN ---
This RN informed pt she had not had a diet and could not order until a diet order is placed. Pt was informed that her GASTROENTEROLOGIST who is working w/ Dr. Almaguer is ordering pt her diet at this time. Pt became adamant about wishing to speak w/ Dr. Almaguer or Gema
Westley as she wants to order what she wants to order to eat. THis RN TT'd Gema Barronurgis GASTROENTEROLOGIST about pt's request.
--- NOTE | 2025-01-05 16:38 | W.PN.UPDATE ---
Update Note
Progress Note Update
Patient refusing cholesterol-lowering diet is demanding regular
Diet order was changed per patient request
--- NOTE | 2025-01-05 16:45 | EDRN ---
Dr. Rodney Neurologist in room w/ pt at this time.
[2025-01-05] MEDS: ULTRAM 50 MG PO ×2 (17:00→21:35)
--- NOTE | 2025-01-05 17:30 | EDRN ---
Dr. Hoang was in to see pt and order for regular diet was placed for pt at her request.
--- NOTE | 2025-01-05 18:04 | PTCARENOTE ---
Received patient from ED via stretcher. Pt AAOX3. Pox: 96% RA. NSR on manager monitoring. Bed alarm on. Call bustillo within reach. Plan of care ongoing.
--- NOTE | 2025-01-05 18:39 | CON.NEURO ---
Neuro Assessment/Plan
Assessment
Head CT imgs rev'd, NAD, mild microvascular changes
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 bilateral vertebral V3-V4 stenosis. Right ICA fibromuscular dysplasia.
gait ataxia and right lesser occipital neuralgia
exam with atlanto axial subluxation, OMT performed to equalize cervical ROM - no improvement in occipital neuralgia pain, unclear if gait ataxia improved
with no vertigo, and no worsening symptoms after exercising left arm, and moderate proximal left subclavian stenosis, I do not believe this is symptomatic subclavian steal, spoke with Dr Eric vascular surgeon who reviewed the imaging and agreed
unlikely symptomatic and no intervention, check MRI brain and ultrasound to confirm anterograde vertebral flow
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
Plan
Eliquis 2.5 BID (age, weight)
MRI brain
ultrasound to confirm anterograde vertebral flow
Consultation
Order
Date of Consultation: 01/05/25
Requesting Provider: Brad Almaguer
Reason for Consult: ataxia
Subjective/Objective
Subjective Data
Date of Service: January 05, 2025
from h&p:
84F HX COPD, Anxiety and depression seen at ER:
- report 4 days R posterior headache
- last night bumped R hoahaoism accidentally and had some pain but not LOC
- this am is ataxic; can't walk without holding on, not dizzy, not lightheaded;
patient tells me previously having intermittent right posterior headache x several months, constant last 5-6 days, presently 5/10 severity. says it's severe and unable to state exact quality. this am with gait ataxia, she emphatically denies
vertigo, lightheadedness, sense of motion at rest, new weakness, or numbness
Objective Data
Vital Signs
Temp Pulse Resp BP Pulse Ox
36.8 C 70 23 149/60 96
01/05/25 18:04 01/05/25 18:04 01/05/25 18:04 01/05/25 18:04 01/05/25 18:04
Lab Results
01/05/25 12:06
01/05/25 12:06
PT 12.2 Sec (11.4-14.6) 01/05/25 12:06
INR 0.88 01/05/25 12:06
APTT 23.9 Sec (23.4-35.0) 01/05/25 12:06
Sodium 138 mmol/L (135-145) 01/05/25 12:06
Potassium 4.3 mmol/L (3.5-5.1) 01/05/25 12:06
BUN 16 mg/dl (7-17) 01/05/25 12:06
Glucose 86 mg/dl (70-99) 01/05/25 12:06
Calcium 9.6 mg/dl (8.4-10.2) 01/05/25 12:06
Patient Allergies
codeine [Codeine] Allergy (Verified 01/05/25 10:05)
This is listed on her PMH but pt denies any allergies
levofloxacin [From Levaquin] Allergy (Verified 01/05/25 10:05)
Unknown
Physical Exam
-
AAOx3, speech clear, language intact
VFF, EOMI, face symmetric
full strength b/l LE, 4/5 b/l LE
sensation intact to touch/pin
coordination finger/nose and heel/benson were intact
Medications
-
Active Medications
Generic Name Dose Route Start Last Admin
Trade Name Freq PRN Reason Stop Dose Admin
Acetaminophen 650 mg 01/05/25 17:43
Acetaminophen 325 Mg Tablet PO 02/02/25 17:42
Q4HPRN PRN
mild pain/LAGUNAS/temp> 100.4F
Albuterol/Ipratropium 3 ml 01/05/25 20:00
Ipratropium 0.5/Albuterol 3 Mg (3 Ml Ampul) INH
R TID PEDRO
Protocol
Aspirin 81 mg 01/06/25 08:00
Aspirin 81 Mg Chewable Tablet PO 02/03/25 07:59
MoWeFr@0800 PEDRO
Budesonide 0.5 mg 01/05/25 20:00
Budesonide (Pulmicort Respules) 0.5 Mg/2 Ml INH
R TID PEDRO
Protocol
Latanoprost 1 drop 01/05/25 22:00
Latanoprost 0.005% (Ophthalmic Solution) 2.5 Ml Bottle BOTH EYES 02/02/25 21:59
HS PEDRO
Pravastatin Sodium 40 mg 01/05/25 22:00
Pravastatin 40 Mg Tablet PO 02/02/25 21:59
HS PEDRO
Sertraline HCl 37.5 mg 01/05/25 22:00
Sertraline 25 Mg Tablet PO 02/02/25 21:59
HS PEDRO
Sodium Chloride 0 flush 01/05/25 18:00
Sodium Chloride 0.9% (Flush) Syringe IV 02/02/25 17:59
PER PROTOCOL PEDRO
Tramadol HCl 50 mg 01/05/25 22:00
Tramadol Hcl 50 Mg Tablet PO 02/02/25 21:59
Q6HPRN PRN
MOD-SEV PAIN
Home Medications
�Medication �Instructions �Recorded
calcium 300 mg-D3 20 mcg-magnesium 1 ea PO DAILY Supplement 02/01/22
25 mg-coppr 0.5 [id number]
tablet (Caltrate-D3 Plus Minerals)
cholecalciferol (vitamin D3) 25 1,000 units PO DAILY Supplement 02/01/22
mcg (1,000 unit) tablet
chromium nicotinate glycinate 250 1 ea PO DAILY Supplement 02/01/22
mcg-herbal no.238 775 mg tablet
(Green Tea (with Metabolic
Enhancer Blend))
elderberry fruit 460 mg-elderberry 1 ea PO DAILY Supplement 02/01/22
flower 115 mg capsule
milk thistle 150 mg capsule 1 cap PO DAILY Supplement 02/01/22
multivitamin with folic acid 400 1 tab PO DAILY Supplement 02/01/22
mcg tablet (Tab-A-Kai)
pomegranate fruit extract 250 mg 250 mg PO DAILY Supplement 02/01/22
capsule
pravastatin 40 mg tablet 40 mg PO HS High cholesterol 02/01/22
sertraline 25 mg tablet 37.5 mg PO HS Mental Health/Anxiety 02/01/22
turmeric root extract 500 mg 500 mg PO DAILY Supplement 02/01/22
capsule
aspirin 81 mg chewable tablet 81 mg PO MOWEFR 01/05/25
budesonide 0.5 mg/2 mL suspension 0.5 mg inhalation R TID 01/05/25
for nebulization
carboxymethylcellulose 0.5 1 drp BOTH EYES BID 01/05/25
%-glycerin 0.9 % eye drops
(Refresh Optive)
ipratropium 0.5 mg-albuterol 3 mg 3 ml inhalation R TID 01/05/25
(2.5 mg base)/3 mL nebulization
soln
latanoprost 0.005 % eye drops 1 drp BOTH EYES HS 01/05/25
melatonin 3 mg tablet 8 - 10 mg PO HS 01/05/25
sodium chloride 3 % for 4 ml inhalation R TID 01/05/25
nebulization
tramadol 50 mg tablet 50 mg PO BIDPRN PRN moderate pains 01/05/25
[2025-01-05] MEDS: DUONEB 3 ML INH (19:50)
[2025-01-05] MEDS: PULMICORT 0.5 MG INH (19:50)
[2025-01-05] MEDS: MELATONIN 5 MG PO (21:24)
[2025-01-05] MEDS: ELIQUIS 2.5 MG PO (21:24)
[2025-01-05] MEDS: ZOLOFT 37.5 MG PO (21:25)
[2025-01-05] MEDS: PRAVACHOL 40 MG PO (21:36)
[2025-01-05] MEDS: XALATAN OPHTHALMIC SOLUTION 1 DROP BOTH EYES (22:35)
[2025-01-06] VITALS (9 sets, daily range): BP systolic 90–121; BP diastolic 46–67; PULSE 73–88; BMI 25.0
[2025-01-06 06:43] LABS: % Basophils 0.6 % (0-2); % Eosinophils 1.9 % (0-6); % Immature Granulocytes 1.5 % (0-0.5); % Monocytes 8.3 % (1.7-9.3); % Neutrophils 68.7 % (42.2-75.2); Absolute Basophils 0.1 10^3/uL (0-0.2); Absolute Eosinophils 0.2 10^3/uL (0-0.7); Absolute Immature Granulocytes 0.1 10^3/uL (0-0.05); Absolute Lymphocytes 1.6 10^3/uL (1.2-3.4); Absolute Monocytes 0.7 10^3/uL (0.1-0.6); Absolute Neutrophils 5.8 10^3/uL (1.4-6.5); Hematocrit 36.4 % (37.0-47.0); Hemoglobin 11.9 g/dL (12.0-16.0); Mean Corp Hgb Conc. 32.7 g/dL (33.0-37.0); Mean Corpuscular Hgb 29.5 pg (27.0-31.0); Mean Corpuscular Volume 90.3 fL (81.0-99.0); Mean Platelet Volume 9.3 fL (7.4-10.4); Nucleated Red Blood Cells % 0 %; Platelet Count 327 10^3/uL (130-400); Red Blood Cell Count 4.03 10^6/uL (4.20-5.40); Red Cell Dist. Width 15.7 % (11.5-14.5); White Blood Cell Count 8.4 10^3/uL (4.8-10.8)
[2025-01-06 07:02] LABS: ALT (SGPT) 21 U/L (0-35); AST (SGOT) 26 U/L (14-36); Albumin 3.4 g/dl (3.5-5.0); Alkaline Phosphatase 55 U/L (38-126); Blood Urea Nitrogen 14 mg/dl (7-17); Calcium 8.9 mg/dl (8.4-10.2); Carbon Dioxide 29 mmol/L (22-30); Chloride 104 mmol/L (98-107); Estimated Creatinine Clearance 51 ml/min; Glucose 89 mg/dl (70-99); HDL Cholesterol 84 mg/dl; LDL Cholesterol, Calculated 87 mg/dl; Potassium 4.9 mmol/L (3.5-5.1); Sodium 137 mmol/L (135-145); Total Bilirubin 0.5 mg/dl (0.2-1.3); Total Cholesterol 182 mg/dl (50-199); Total Protein 5.4 g/dl (6.3-8.2); Triglyceride 58 mg/dl (10-149); Very Low Density Lipoprotein 11 mg/dl (0-30); eGFR > 60.00
[2025-01-06] MEDS: DUONEB 3 ML INH ×3 (07:35→18:39)
[2025-01-06] MEDS: PULMICORT 0.5 MG INH ×3 (07:35→18:39)
--- NOTE | 2025-01-06 08:09 | W.PN.HOSP.TC ---
Today's Communication/Plan
-
MRI brain.
Carotid ultrasound.
Physical therapy evaluation
Assessment / Plan
Assessment / Plan
Impression:
Patient is 84 years old with history of TIA, hyperlipidemia, COPD, anxiety who came to [facility] with acute nontender posterior right occipital headache and balance dysfunction.
Patient completed her right temporal area without altered nature, CT head negative in the ER, CTA head and neck shows
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
No evidence for hemodynamically significant stenosis of the carotid bulbs or proximal internal carotid arteries bilaterally.
'Beaded' appearance of the cervical right internal carotid artery, appearance fairly characteristic for fibromuscular dysplasia, with no evidence of a high-grade stenosis. Of note, no convincing evidence for fibromuscular dysplasia involving the
cervical portion of the left ICA.
Moderate narrowing of the vertebral arteries bilaterally at the junction of the V3 and V4 portions, as the vertebral arteries become intradural. No significant narrowing of the basilar artery or the posterior cerebral arteries.
Neurology consulted recommended MRI brain, ultrasound carotids.
Patient started on low-dose Eliquis.
Assessment/plan:
Acute non tender post Rt occipital headaches
Associated subjective balance dysfunction
S/P bumped to Lt temporal head with tall furniture
CT head negative in the ER,
CTA head and neck shows:
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
No evidence for hemodynamically significant stenosis of the carotid bulbs or proximal internal carotid arteries bilaterally.
'Beaded' appearance of the cervical right internal carotid artery, appearance fairly characteristic for fibromuscular dysplasia, with no evidence of a high-grade stenosis. Of note, no convincing evidence for fibromuscular dysplasia involving the
cervical portion of the left ICA.
Moderate narrowing of the vertebral arteries bilaterally at the junction of the V3 and V4 portions, as the vertebral arteries become intradural. No significant narrowing of the basilar artery or the posterior cerebral arteries.
Neurology consulted recommended MRI brain, ultrasound carotids.
Patient was started on low-dose Eliquis
Evidence for hemodynamically significant stenosis of the proximal left subclavian arterydiameter reduction of 67%.
- to consider OP vascular consult
Continue Eliquis as started by neurology
HX TIA
HLD
Aspirin on hold while on Eliquis.
Continue statin
COPD
-Continue Spiriva
Anxiety/depression
-Continue sertraline
Insomnia
-Continue trazodone
CODE STATUS: Full code
DVT prophylaxis: Eliquis
Diet: Regular diet
Disposition: Pending MRI/carotid artery/physical therapy
Total time spent on today's encounter was 65 minutes which included time spent in counseling the patient/family regarding diagnosis and treatment plan as listed above, goals of care, and symptom management. Case was discussed with nursing staff,
specialists, and care coordinators/case management. All labs and imaging personally reviewed by me. Remainder the time spent in detailed review of previous records, lab data, imaging, and other medical provider documentation.
Anticipated Discharge: Within 24 hours
Subjective/Interval History
-
Date of Service: January 06, 2025
Patient seen and examined at bedside, headaches improved, denies any chest pain or shortness of breath, no abdominal pain, no nausea, no vomiting, no diarrhea or constipation.
Objective Data
-
Labs:
Laboratory Results
01/06/25
05:56
WBC 8.4
Hgb 11.9 L
Hct 36.4 L
Plt Count 327
Sodium 137
Potassium 4.9
Chloride 104
Carbon Dioxide 29
BUN 14
Creatinine 0.6
Glucose 89
Calcium 8.9
Total Bilirubin 0.5
AST 26
ALT 21
Alkaline Phosphatase 55
Vital Signs:
Vital Signs
Temp Pulse Resp BP Pulse Ox
98.1 F 75 16 102/57 90
05/26/25 07:05 01/06/25 07:41 01/06/25 07:41 01/06/25 07:05 01/06/25 07:41
I&O
01/05/25 01/06/25 01/07/25
06:59 06:59 06:59
Intake Total 480 / 480
Balance 480 / 480
Physical Exam
-
General: Well Developed, Well Nourished, No Apparent Distress and Comfortable
HEENT: Normocephalic, Atraumatic, Moist Mucous Membranes, No Ptosis, PERRLA and Nose Appears Normal
Respiratory: Clear to Auscultation and Non Labored Respirations
Cardiac: Regular Rhythm and S1/S2
Breast: Deferred by me
GI: Soft, Nontender, Nondistended and Normal Bowel Sounds
Genito-urinary: No Costovertebral Tender
Musculoskeletal: No Clubbing, No Cyanosis and No Edema
Skin: Warm
Neuro: Awake, Alert, Oriented, AO x 3 and No Motor Deficits
Psych: Calm
Data Reviewed
-
Diagnostic Radiology: Image personally visualized and interpreted and Report Reviewed by me
CT Scan: Image personally visualized and interpreted and Report Reviewed by me
Ultrasound: Image personally visualized and interpreted and Report Reviewed by me
MRI: Image personally visualized and interpreted and Report Reviewed by me
Medical Tests (Nuc Med, Echo etc): Image personally visualized and interpreted and Report Reviewed by me
Labs: Labs Reviewed by me
Old Records: Reviewed
[2025-01-06] MEDS: LOW STRENGTH ASPIRIN 81 MG PO (08:15)
[2025-01-06] MEDS: ELIQUIS 2.5 MG PO ×2 (08:15→22:09)
--- NOTE | 2025-01-06 08:37 | W.PN.NEURO.1 ---
Today's Communication / Plan
-
check MRI brain and ultrasound to confirm anterograde vertebral flow
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
Will discontinue aspirin and restart after discontinuance of apixaban
Outpatient evaluation by vascular surgery due to asymptomatic right carotid artery fibromuscular dysplasia
Continue to monitor orthostatic blood pressures
Neuro Assessment/Plan
Assessment
Head CT imgs rev'd, NAD, mild microvascular changes
CTA head and neck imgs with L subclavian focal stenosis ~67% due to partially calcified clot. bilateral vertebral V3-V4 stenosis. Right ICA fibromuscular dysplasia.
gait ataxia and right lesser occipital neuralgia
OMT performed to equalize cervical ROM - no improvement in occipital neuralgia pain, unclear if gait ataxia improved
with no vertigo, and no worsening symptoms after exercising left arm, and moderate proximal left subclavian stenosis, I do not believe this is symptomatic subclavian steal, spoke with Dr Eric vascular surgeon who reviewed the imaging and agreed
unlikely symptomatic and no intervention
Plan
check MRI brain and ultrasound to confirm anterograde vertebral flow
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
Will discontinue aspirin and restart after discontinuance of apixaban
Outpatient evaluation by vascular surgery due to asymptomatic right carotid artery fibromuscular dysplasia
Continue to monitor orthostatic blood pressures
Will follow pending results
Subjective/Objective
Subjective Data
Date of Service: January 06, 2025
Objective Data
Vital Signs
Temp Pulse Resp BP Pulse Ox
36.7 C 75 16 102/57 90
01/06/25 07:05 01/06/25 07:41 01/06/25 07:41 01/06/25 07:05 01/06/25 07:41
Lab Results
01/06/25 05:56
01/06/25 05:56
PT 12.2 Sec (11.4-14.6) 01/05/25 12:06
INR 0.88 01/05/25 12:06
APTT 23.9 Sec (23.4-35.0) 01/05/25 12:06
Sodium 137 mmol/L (135-145) 01/06/25 05:56
Potassium 4.9 mmol/L (3.5-5.1) 01/06/25 05:56
BUN 14 mg/dl (7-17) 01/06/25 05:56
Glucose 89 mg/dl (70-99) 01/06/25 05:56
Calcium 8.9 mg/dl (8.4-10.2) 01/06/25 05:56
LDL Cholesterol, Calc 87 mg/dl 01/06/25 05:56
Patient Allergies
codeine [Codeine] Allergy (Verified 01/05/25 10:05)
This is listed on her PMH but pt denies any allergies
levofloxacin [From Levaquin] Allergy (Verified 01/05/25 10:05)
Unknown
Past History
Past History
ED Past Medical History: COPD, Hypercholesterolemia and Other (osteopenia, cholelithiasis, atrioseptal aneurysm, memory loss, COVID-19, UTI, meningitis 1954, Pseudomonas infection, episodic blurred vision beginning 2018)
ED Past Surgical History: Appendectomy, Cholecystectomy, Orthopedic (bilateral knee replacement, epidural steroid injections, lumbar 2020; right leg fracture) and Other (negative thyroid biopsy 2018, cataract extractions, MILD procedure)
Social History
Tobacco: Former smoker
Alcohol: Occasional
Drug: None
Personal: Single
Living: alone
Employment: Retired
Family History
Family History: Other (reviewed and noncontributory); Negative CAD
Medications
-
Medications:
Generic Name Dose Route Start Last Admin
Trade Name Freq PRN Reason Stop Dose Admin
Acetaminophen 650 mg 01/05/25 17:43
Acetaminophen 325 Mg Tablet PO 02/02/25 17:42
Q4HPRN PRN
mild pain/LAGUNAS/temp> 100.4F
Albuterol/Ipratropium 3 ml 01/05/25 20:00 01/06/25 07:35
Ipratropium 0.5/Albuterol 3 Mg (3 Ml Ampul) INH 3 ml
R TID PEDRO Administration
Protocol
Apixaban 2.5 mg 01/05/25 20:00 01/06/25 08:15
Apixaban (Eliquis) 2.5 Mg Tablet PO 02/02/25 19:59 2.5 mg
BID PEDRO Administration
Aspirin 81 mg 01/06/25 08:00 01/06/25 08:15
Aspirin 81 Mg Chewable Tablet PO 02/03/25 07:59 81 mg
MoWeFr@0800 PEDRO Administration
Budesonide 0.5 mg 01/05/25 20:00 01/06/25 07:35
Budesonide (Pulmicort Respules) 0.5 Mg/2 Ml INH 0.5 mg
R TID PEDRO Administration
Protocol
Latanoprost 1 drop 01/05/25 22:00 01/05/25 22:35
Latanoprost 0.005% (Ophthalmic Solution) 2.5 Ml Bottle BOTH EYES 02/02/25 21:59 1 drop
HS PEDRO Administration
Melatonin 5 mg 01/05/25 22:00 01/05/25 21:24
Melatonin 5 Mg Tablet PO 02/02/25 21:59 5 mg
HS PEDRO Administration
Pravastatin Sodium 40 mg 01/05/25 22:00 01/05/25 21:36
Pravastatin 40 Mg Tablet PO 02/02/25 21:59 40 mg
HS PEDRO Administration
Sertraline HCl 37.5 mg 01/05/25 22:00 01/05/25 21:25
Sertraline 25 Mg Tablet PO 02/02/25 21:59 37.5 mg
HS PEDRO Administration
Sodium Chloride 0 flush 01/05/25 18:00
Sodium Chloride 0.9% (Flush) Syringe IV 02/02/25 17:59
PER PROTOCOL PEDRO
Tramadol HCl 50 mg 01/05/25 22:00 01/05/25 21:35
Tramadol Hcl 50 Mg Tablet PO 02/02/25 21:59 50 mg
Q6HPRN PRN Administration
MOD-SEV PAIN
--- NOTE | 2025-01-06 12:31 | PTOTSP ---
ST Acute Care Evaluation
Pt currently presents with oral, pharyngeal, and esophageal parameters that are WFL; no overt s/s of penetration or aspiration noted at bedside. Please note that silent aspiration cannot be ruled out at bedside.
Recommendations:
- Continue with regular solids, thin liquids, meds as tolerate, and general aspiration precautions.
- [employer] to sign off as no skilled services are indicated at this time.
[2025-01-06] MEDS: ULTRAM 50 MG PO (19:58)
[2025-01-06] MEDS: MELATONIN 5 MG PO ×2 (22:09→22:16)
[2025-01-06] MEDS: ZOLOFT 37.5 MG PO (22:10)
[2025-01-06] MEDS: XALATAN OPHTHALMIC SOLUTION 1 DROP BOTH EYES (22:10)
[2025-01-06] MEDS: PRAVACHOL 40 MG PO (22:10)
[2025-01-07] VITALS (7 sets, daily range): BP systolic 100–131; BP diastolic 48–75; PULSE 71–92; BMI 25.2
[2025-01-07] MEDS: DUONEB 3 ML INH ×3 (07:16→19:35)
[2025-01-07] MEDS: PULMICORT 0.5 MG INH ×3 (07:16→19:35)
[2025-01-07] MEDS: ELIQUIS 2.5 MG PO ×2 (07:27→20:15)
[2025-01-07] MEDS: ULTRAM 50 MG PO (07:31)
--- NOTE | 2025-01-07 11:08 | W.PN.HOSP.TC ---
Today's Communication/Plan
-
Discharge home today
Assessment / Plan
Assessment / Plan
Impression:
Patient is 84 years old with history of TIA, hyperlipidemia, COPD, anxiety who came to [place] [facility] with acute nontender posterior right occipital headache and balance dysfunction.
Patient completed her right temporal area without altered nature, CT head negative in the ER, CTA head and neck shows
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
No evidence for hemodynamically significant stenosis of the carotid bulbs or proximal internal carotid arteries bilaterally.
'Beaded' appearance of the cervical right internal carotid artery, appearance fairly characteristic for fibromuscular dysplasia, with no evidence of a high-grade stenosis. Of note, no convincing evidence for fibromuscular dysplasia involving the
cervical portion of the left ICA.
Moderate narrowing of the vertebral arteries bilaterally at the junction of the V3 and V4 portions, as the vertebral arteries become intradural. No significant narrowing of the basilar artery or the posterior cerebral arteries.
Neurology consulted recommended MRI brain, ultrasound carotids.
Patient started on low-dose Eliquis.
MRI brain shows:
No evidence of acute intracranial abnormality.
Moderate atrophy. The callosal angle appears normal, and findings are not considered highly suggestive of normal pressure hydrocephalus.
Moderate T2 and FLAIR white matter hyperintensities, commonly seen with aging and usually attributed to small vessel ischemic disease. These hyperintensities have not been shown to correlate with a focal neurologic deficit.
Assessment/plan:
Acute non tender post Rt occipital headaches
Associated subjective balance dysfunction
S/P bumped to Lt temporal head with tall furniture
CT head negative in the ER,
CTA head and neck shows:
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
No evidence for hemodynamically significant stenosis of the carotid bulbs or proximal internal carotid arteries bilaterally.
'Beaded' appearance of the cervical right internal carotid artery, appearance fairly characteristic for fibromuscular dysplasia, with no evidence of a high-grade stenosis. Of note, no convincing evidence for fibromuscular dysplasia involving the
cervical portion of the left ICA.
Moderate narrowing of the vertebral arteries bilaterally at the junction of the V3 and V4 portions, as the vertebral arteries become intradural. No significant narrowing of the basilar artery or the posterior cerebral arteries.
Neurology consulted recommended MRI brain, ultrasound carotids.
Patient was started on low-dose Eliquis.
MRI brain shows:
No evidence of acute intracranial abnormality.
Moderate atrophy. The callosal angle appears normal, and findings are not considered highly suggestive of normal pressure hydrocephalus.
Moderate T2 and FLAIR white matter hyperintensities, commonly seen with aging and usually attributed to small vessel ischemic disease. These hyperintensities have not been shown to correlate with a focal neurologic deficit.
Evidence for hemodynamically significant stenosis of the proximal left subclavian arterydiameter reduction of 67%.
- to consider OP vascular consult
Continue Eliquis as started by neurology
HX TIA
HLD
Aspirin on hold while on Eliquis.
Continue statin
COPD
-Continue Spiriva
Anxiety/depression
-Continue sertraline
Insomnia
-Continue trazodone
CODE STATUS: Full code
DVT prophylaxis: Eliquis
Diet: Regular diet
Disposition: Physical recommending rehab but patient refused rehab and wants to go home.
Offered home physical therapy and she will think about it.
Otherwise patient cleared for discharge home.
Total time spent on today's encounter was 65 minutes which included time spent in counseling the patient/family regarding diagnosis and treatment plan as listed above, goals of care, and symptom management. Case was discussed with nursing staff,
specialists, and care coordinators/case management. All labs and imaging personally reviewed by me. Remainder the time spent in detailed review of previous records, lab data, imaging, and other medical provider documentation.
Anticipated Discharge: Today
Subjective/Interval History
-
Date of Service: January 07, 2025
Patient seen and examined at bedside, denies any chest pain or shortness of breath, no abdominal pain, no nausea, no vomiting, no diarrhea or constipation.
Headaches improved.
Objective Data
-
Vital Signs:
Vital Signs
Temp Pulse Resp BP Pulse Ox
98.7 F 64 16 105/48 96
01/07/25 07:05 01/07/25 07:20 01/07/25 07:20 01/07/25 07:05 01/07/25 07:20
I&O
01/06/25 01/07/25 01/08/25
06:59 06:59 06:59
Intake Total 480 / 480 1200 / 1200
Balance 480 / 480 1200 / 1200
Physical Exam
-
General: Well Developed, Well Nourished, No Apparent Distress and Comfortable
HEENT: Normocephalic, Atraumatic, Moist Mucous Membranes, No Ptosis, PERRLA and Nose Appears Normal
Respiratory: Clear to Auscultation and Non Labored Respirations
Cardiac: Regular Rhythm and S1/S2
Breast: Deferred by me
GI: Soft, Nontender, Nondistended and Normal Bowel Sounds
Genito-urinary: No Costovertebral Tender
Musculoskeletal: No Clubbing, No Cyanosis and No Edema
Skin: Warm
Neuro: Awake, Alert, Oriented, AO x 3 and No Motor Deficits
Psych: Calm
Data Reviewed
-
Diagnostic Radiology: Image personally visualized and interpreted and Report Reviewed by me
CT Scan: Image personally visualized and interpreted and Report Reviewed by me
Ultrasound: Image personally visualized and interpreted and Report Reviewed by me
MRI: Image personally visualized and interpreted and Report Reviewed by me
Medical Tests (Nuc Med, Echo etc): Image personally visualized and interpreted and Report Reviewed by me
Labs: Labs Reviewed by me
Old Records: Reviewed
--- NOTE | 2025-01-07 13:28 | CM ---
Addendum entered by Mayte Guzman 01/08/25 08:00:
late entry: Patient changed her mind and now wants SNF
Spoke with Mackenzie at [facility] SN[facility] & referral entered - accepted, bed avail on 01/08
COVID test to be ordered - tt hospitalist
CM called Cecile & will get paperwork to [facility] for waiver program-updated Mackenzie
PLAN: [facility] SNF 01/08
Report [phone]

friend to transport - [facility] would like 12:30
Original Note:
Patient seen at bedside
OBS status - DOUGLAS form explained & signed. In chart
CM tt Cecile refarding waiver program -patient qualified for [facility] waiver for SNF
discussed with patient and patient declines SNF, offered VN patient declined
PLAN: home, declines SNF & VN
friend to transport
--- NOTE | 2025-01-07 14:27 | W.DCSUMMARY ---
Discharge Summary
Discharge Data
Date of Admission: 01/05/25
Date of Discharge: 01/07/25
-
Pending Results: No
Hospital Course
Hospital course
Patient is 84 years old with history of TIA, hyperlipidemia, COPD, anxiety who came to [place] [facility] with acute nontender posterior right occipital headache and balance dysfunction.
Patient completed her right temporal area without altered nature, CT head negative in the ER, CTA head and neck shows
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
No evidence for hemodynamically significant stenosis of the carotid bulbs or proximal internal carotid arteries bilaterally.
'Beaded' appearance of the cervical right internal carotid artery, appearance fairly characteristic for fibromuscular dysplasia, with no evidence of a high-grade stenosis. Of note, no convincing evidence for fibromuscular dysplasia involving the
cervical portion of the left ICA.
Moderate narrowing of the vertebral arteries bilaterally at the junction of the V3 and V4 portions, as the vertebral arteries become intradural. No significant narrowing of the basilar artery or the posterior cerebral arteries.
Neurology consulted recommended MRI brain, ultrasound carotids.
Patient started on low-dose Eliquis.
MRI brain shows:
No evidence of acute intracranial abnormality.
Moderate atrophy. The callosal angle appears normal, and findings are not considered highly suggestive of normal pressure hydrocephalus.
Moderate T2 and FLAIR white matter hyperintensities, commonly seen with aging and usually attributed to small vessel ischemic disease. These hyperintensities have not been shown to correlate with a focal neurologic deficit.
During hospitalization patient was treated from the following
Acute non tender post Rt occipital headaches
Associated subjective balance dysfunction
S/P bumped to Lt temporal head with tall furniture
CT head negative in the ER,
CTA head and neck shows:
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
No evidence for hemodynamically significant stenosis of the carotid bulbs or proximal internal carotid arteries bilaterally.
'Beaded' appearance of the cervical right internal carotid artery, appearance fairly characteristic for fibromuscular dysplasia, with no evidence of a high-grade stenosis. Of note, no convincing evidence for fibromuscular dysplasia involving the
cervical portion of the left ICA.
Moderate narrowing of the vertebral arteries bilaterally at the junction of the V3 and V4 portions, as the vertebral arteries become intradural. No significant narrowing of the basilar artery or the posterior cerebral arteries.
Neurology consulted recommended MRI brain, ultrasound carotids.
Patient was started on low-dose Eliquis.
MRI brain shows:
No evidence of acute intracranial abnormality.
Moderate atrophy. The callosal angle appears normal, and findings are not considered highly suggestive of normal pressure hydrocephalus.
Moderate T2 and FLAIR white matter hyperintensities, commonly seen with aging and usually attributed to small vessel ischemic disease. These hyperintensities have not been shown to correlate with a focal neurologic deficit.
Evidence for hemodynamically significant stenosis of the proximal left subclavian arterydiameter reduction of 67%.
- to consider OP vascular consult
Continue Eliquis as started by neurology
HX TIA
HLD
Aspirin on hold while on Eliquis.
Continue statin
COPD
-Continue Spiriva
Anxiety/depression
-Continue sertraline
Insomnia
-Continue trazodone
CODE STATUS: Full code
DVT prophylaxis: Eliquis
Diet: Regular diet
Disposition: Physical recommending rehab but patient refused rehab and wants to go home.
Offered home physical therapy and she will think about it.
Otherwise patient cleared for discharge home.
Total time spent on today's encounter was 40 minutes which included time spent in counseling the patient/family regarding diagnosis and treatment plan as listed above, goals of care, and symptom management. Case was discussed with nursing staff,
specialists, and care coordinators/case management. All labs and imaging personally reviewed by me. Remainder the time spent in detailed review of previous records, lab data, imaging, and other medical provider documentation.
Anticipated Discharge: Today
Discharge Plan
-
Patient Disposition: Home with Home Care
Discharge Diagnosis/Procedures: Occipital headache.
Proximal left subclavian artery stenosis.
Hyperlipidemia.
COPD
Diet: Low Fat and Low Cholesterol
Activity: As tolerated
Referrals:
Jorge Dotson MD [Active] - in three to four weeks
Panda Mandujano MD [Active] - in three to four weeks
Andrea Eric MD [Active] - in three to four weeks
Rylee Whitmore MD [Family Provider] -
Prescriptions:
New
Eliquis 2.5 mg Tablet
2.5 mg PO BID Qty: 60 5RF
Continued
pravastatin 40 MG tablet
40 mg PO HS
sertraline 25 MG tablet
37.5 mg PO HS
cholecalciferol (vitamin D3) 1,000 UNITS tablet
1,000 units PO DAILY
multivitamin with folic acid [Tab-A-Kai] 1 TABLET tablet
1 tab PO DAILY
milk thistle 150 MG capsule
1 cap PO DAILY
turmeric root extract 500 MG capsule
500 mg PO DAILY
pomegranate fruit extract 250 MG capsule
250 mg PO DAILY
Green Tea (w/Met.Enhan.Blend) 1 EACH tablet
1 ea PO DAILY
Caltrate-D3 Plus Minerals 1 EACH tablet
1 ea PO DAILY
elderberry fruit and flower 1 EACH capsule
1 ea PO DAILY
latanoprost 0.005 % Drops
1 drp BOTH EYES HS
ipratropium-albuterol 0.5 mg-3 mg(2.5 mg base)/3 mL Solution For Nebulization
3 ml INHALATION R TID
sodium chloride 3 % Solution For Nebulization
4 ml INHALATION R TID
tramadol 50 mg Tablet
50 mg PO BIDPRN PRN (Reason: moderate pains)
budesonide 0.5 mg/2 mL Suspension For Nebulization
0.5 mg INHALATION R TID
Refresh Optive 0.5-0.9 % Drops
1 drp BOTH EYES BID
melatonin 3 mg Tablet
8 - 10 mg PO HS
Held
aspirin 81 mg tablet,chewable
81 mg PO MOWEFR
Hold Instructions: Hold while on Eliquis, resume after 6 months ( June 2025) after completing Eliquis
Discharge Orders:
Discharge Patient (As Directed); Ordered 01/07/25
Ordered By: Nato Morales
Discharge Date and Time
Print Language: JAPANESE
[2025-01-07 17:35] LABS: COVID-19 Antigen Negative (Negative)
[2025-01-07] MEDS: MELATONIN 5 MG PO (21:27)
[2025-01-07] MEDS: ZOLOFT 37.5 MG PO (21:28)
[2025-01-07] MEDS: XALATAN OPHTHALMIC SOLUTION 1 DROP BOTH EYES (21:29)
[2025-01-07] MEDS: PRAVACHOL 40 MG PO (21:30)
[2025-01-08 03:00] VITALS: BP 120/68
[2025-01-08 06:00] VITALS: BMI 25.0
[2025-01-08 07:32] VITALS: BP 134/64
[2025-01-08] MEDS: DUONEB 3 ML INH (07:58)
[2025-01-08] MEDS: PULMICORT 0.5 MG INH (07:58)
[2025-01-08] MEDS: ELIQUIS 2.5 MG PO (08:31)
[2025-01-08] MEDS: TYLENOL 650 MG PO (08:35)
--- NOTE | 2025-01-08 10:20 | W.PN.HOSP.TC ---
Today's Communication/Plan
-
DC to SNF today
Assessment / Plan
Assessment / Plan
Impression:
Patient is 84 years old with history of TIA, hyperlipidemia, COPD, anxiety who came to [facility] with acute nontender posterior right occipital headache and balance dysfunction.
Patient completed her right temporal area without altered nature, CT head negative in the ER, CTA head and neck shows
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
No evidence for hemodynamically significant stenosis of the carotid bulbs or proximal internal carotid arteries bilaterally.
'Beaded' appearance of the cervical right internal carotid artery, appearance fairly characteristic for fibromuscular dysplasia, with no evidence of a high-grade stenosis. Of note, no convincing evidence for fibromuscular dysplasia involving the
cervical portion of the left ICA.
Moderate narrowing of the vertebral arteries bilaterally at the junction of the V3 and V4 portions, as the vertebral arteries become intradural. No significant narrowing of the basilar artery or the posterior cerebral arteries.
Neurology consulted recommended MRI brain, ultrasound carotids.
Patient started on low-dose Eliquis.
MRI brain shows:
No evidence of acute intracranial abnormality.
Moderate atrophy. The callosal angle appears normal, and findings are not considered highly suggestive of normal pressure hydrocephalus.
Moderate T2 and FLAIR white matter hyperintensities, commonly seen with aging and usually attributed to small vessel ischemic disease. These hyperintensities have not been shown to correlate with a focal neurologic deficit.
US carotid shows:
No significant stenosis bilateral extracranial carotid arteries. Antegrade flow bilateral vertebral arteries.
Assessment/plan:
Acute non tender post Rt occipital headaches
Associated subjective balance dysfunction
S/P bumped to Lt temporal head with tall furniture
CT head negative in the ER,
CTA head and neck shows:
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
No evidence for hemodynamically significant stenosis of the carotid bulbs or proximal internal carotid arteries bilaterally.
'Beaded' appearance of the cervical right internal carotid artery, appearance fairly characteristic for fibromuscular dysplasia, with no evidence of a high-grade stenosis. Of note, no convincing evidence for fibromuscular dysplasia involving the
cervical portion of the left ICA.
Moderate narrowing of the vertebral arteries bilaterally at the junction of the V3 and V4 portions, as the vertebral arteries become intradural. No significant narrowing of the basilar artery or the posterior cerebral arteries.
Neurology consulted recommended MRI brain, ultrasound carotids.
Patient was started on low-dose Eliquis.
MRI brain shows:
No evidence of acute intracranial abnormality.
Moderate atrophy. The callosal angle appears normal, and findings are not considered highly suggestive of normal pressure hydrocephalus.
Moderate T2 and FLAIR white matter hyperintensities, commonly seen with aging and usually attributed to small vessel ischemic disease. These hyperintensities have not been shown to correlate with a focal neurologic deficit.
US carotid shows:
No significant stenosis bilateral extracranial carotid arteries. Antegrade flow bilateral vertebral arteries.
Evidence for hemodynamically significant stenosis of the proximal left subclavian arterydiameter reduction of 67%.
- to consider OP vascular consult
Continue Eliquis as started by neurology
HX TIA
HLD
Aspirin on hold while on Eliquis.
Continue statin
COPD
-Continue Spiriva
Anxiety/depression
-Continue sertraline
Insomnia
-Continue trazodone
CODE STATUS: Full code
DVT prophylaxis: Eliquis
Diet: Regular diet
Disposition: Physical recommending rehab , patient will be dischraged to rehab once bed available.
Total time spent on today's encounter was 65 minutes which included time spent in counseling the patient/family regarding diagnosis and treatment plan as listed above, goals of care, and symptom management. Case was discussed with nursing staff,
specialists, and care coordinators/case management. All labs and imaging personally reviewed by me. Remainder the time spent in detailed review of previous records, lab data, imaging, and other medical provider documentation.
Anticipated Discharge: Today
Subjective/Interval History
-
Date of Service: January 08, 2025
patient feeling better, will be discharged to rehab today, no chest pain or shortness of breath.
Objective Data
-
Vital Signs:
Vital Signs
Temp Pulse Resp BP Pulse Ox
97.6 F 72 16 134/64 94
01/08/25 07:32 01/08/25 08:00 01/08/25 08:00 01/08/25 07:32 01/08/25 08:00
I&O
01/07/25 01/08/25 01/09/25
06:59 06:59 06:59
Intake Total 1200 / 1200 1440 / 1440
Balance 1200 / 1200 1440 / 1440
Physical Exam
-
General: Well Developed, Well Nourished, No Apparent Distress and Comfortable
HEENT: Normocephalic, Atraumatic, Moist Mucous Membranes, No Ptosis, PERRLA and Nose Appears Normal
Respiratory: Clear to Auscultation and Non Labored Respirations
Cardiac: Regular Rhythm and S1/S2
Breast: Deferred by me
GI: Soft, Nontender, Nondistended and Normal Bowel Sounds
Genito-urinary: No Costovertebral Tender
Musculoskeletal: No Clubbing, No Cyanosis and No Edema
Skin: Warm
Neuro: Awake, Alert, Oriented, AO x 3 and No Motor Deficits
Psych: Calm
Data Reviewed
-
Diagnostic Radiology: Image personally visualized and interpreted and Report Reviewed by me
CT Scan: Image personally visualized and interpreted and Report Reviewed by me
Ultrasound: Image personally visualized and interpreted and Report Reviewed by me
MRI: Image personally visualized and interpreted and Report Reviewed by me
Medical Tests (Nuc Med, Echo etc): Image personally visualized and interpreted and Report Reviewed by me
Labs: Labs Reviewed by me
Old Records: Reviewed
--- NOTE | 2025-01-08 10:33 | CM ---
tt Cecile - faxed progress note for waiver for [facility] to [phone]
spoke with Mackenzie johnson at [facility] & updated - she will confirm she when she rec waiver paperwork
coupon for Eliquis given to patient per hospitalist request
PLAN: PLAN: [facility] 01/08
Report [phone]

friend to transport at 1pm
[2025-01-08 10:46] VITALS: BP 109/55
== END 2025-01-08 13:36 ==
LOC: 3 WEST ACU 15:55
PROVIDERS: Clinical Nurse Specialist Family Health; Physician Assistant; ADMITTING PHYSICIAN Internal Medicine; ATTENDING PHYSICIAN General Practice; CONSULT PHYSICIAN Psychiatry & Neurology Clinical Neurophysiology; EMERGENCY PHYSICIAN Emergency Medicine; FAMILY PHYSICIAN Family Medicine
DX: G44.309 Post-traumatic headache, unspecified, not intractable (principal); J43.9 Emphysema, unspecified; Z87.891 Personal history of nicotine dependence; W22.03XA Walked into furniture, initial encounter; S09.90XA Unspecified injury of head, initial encounter; R42 Dizziness and giddiness; F32.A Depression, unspecified; G47.00 Insomnia, unspecified; M54.81 Occipital neuralgia; R26.0 Ataxic gait; Z79.01 Long term (current) use of anticoagulants
CPT/HCPCS: 70450; 70496; 70498; 70551; 80053; 80061; 85025; 85610; 85730; 87811; 92610; 93005; 93880; 94640; 97163; 97167; 99285; G0378; Q9967

== ENCOUNTER → 2025-01-17 11:55 | Outpatient (REF) | payer MEDICARE, OTHER, SELFPAY ==
[2025-01-17 16:29] LABS: ALT (SGPT) 24 U/L (0-35); AST (SGOT) 29 U/L (14-36); Albumin 4.3 g/dl (3.5-5.0); Alkaline Phosphatase 67 U/L (38-126); Blood Urea Nitrogen 15 mg/dl (7-17); Calcium 9.3 mg/dl (8.4-10.2); Carbon Dioxide 26 mmol/L (22-30); Chloride 104 mmol/L (98-107); Direct Bilirubin 0.1 mg/dl (0.0-0.4); Glucose 81 mg/dl (70-99); Potassium 4.4 mmol/L (3.5-5.1); Sodium 137 mmol/L (135-145); Total Bilirubin 0.7 mg/dl (0.2-1.3); Total Protein 6.7 g/dl (6.3-8.2); eGFR > 60.00
== END ==
LOC: HWLAB 11:55
PROVIDERS: ATTENDING PHYSICIAN Internal Medicine Cardiovascular Disease; FAMILY PHYSICIAN Family Medicine
DX: I70.0 Atherosclerosis of aorta (principal); E78.2 Mixed hyperlipidemia
CPT/HCPCS: 36415; 80053; 82248

== ENCOUNTER → 2025-02-05 11:29 | Outpatient (REF) | payer MEDICARE, OTHER, SELFPAY ==
[2025-02-05 16:02] LABS: % Basophils 0.6 % (0-2); % Eosinophils 1.4 % (0-6); % Immature Granulocytes 0.7 % (0-0.5); % Lymphocytes 20.5 % (20.5-51.1); % Monocytes 8.1 % (1.7-9.3); % Neutrophils 68.7 % (42.2-75.2); Absolute Basophils 0.1 10^3/uL (0-0.2); Absolute Eosinophils 0.1 10^3/uL (0-0.7); Absolute Immature Granulocytes 0.1 10^3/uL (0-0.05); Absolute Lymphocytes 1.7 10^3/uL (1.2-3.4); Absolute Monocytes 0.7 10^3/uL (0.1-0.6); Absolute Neutrophils 5.8 10^3/uL (1.4-6.5); Hematocrit 42.6 % (37.0-47.0); Mean Corp Hgb Conc. 32.9 g/dL (33.0-37.0); Mean Corpuscular Volume 91.4 fL (81.0-99.0); Mean Platelet Volume 9.8 fL (7.4-10.4); Nucleated Red Blood Cells % 0 %; Platelet Count 385 10^3/uL (130-400); Red Blood Cell Count 4.66 10^6/uL (4.20-5.40); Red Cell Dist. Width 15.3 % (11.5-14.5); White Blood Cell Count 8.4 10^3/uL (4.8-10.8)
[2025-02-05 16:14] LABS: ALT (SGPT) 28 U/L (0-35); AST (SGOT) 31 U/L (14-36); Albumin 4.4 g/dl (3.5-5.0); Alkaline Phosphatase 68 U/L (38-126); Blood Urea Nitrogen 11 mg/dl (7-17); Calcium 9.2 mg/dl (8.4-10.2); Carbon Dioxide 27 mmol/L (22-30); Chloride 104 mmol/L (98-107); Glucose 82 mg/dl (70-99); Iron 147 ug/dl (37-170); Potassium 4.3 mmol/L (3.5-5.1); Sodium 135 mmol/L (135-145); Total Bilirubin 0.8 mg/dl (0.2-1.3); Total Cholesterol 185 mg/dl (50-199); Total Protein 6.6 g/dl (6.3-8.2); Triglyceride 52 mg/dl (10-149); Very Low Density Lipoprotein 10 mg/dl (0-30); eGFR > 60.00
[2025-02-05 16:24] LABS: HDL Cholesterol 113 mg/dl; LDL Cholesterol, Calculated 62 mg/dl
[2025-02-05 16:25] LABS: Percent Saturation 46 % (20-50); Total Iron Binding Capacity 318 ug/dl (265-497)
[2025-02-05 16:45] LABS: Ferritin 40.4 ng/ml (11.1-264.0)
[2025-02-05 17:17] LABS: Folate > 20.0 ng/ml (2.76-20); Vitamin B12 953 pg/ml (239-931)
== END ==
LOC: HWLAB 11:29
PROVIDERS: ATTENDING PHYSICIAN Family Medicine
DX: E44.1 Mild protein-calorie malnutrition (principal); Z79.899 Other long term (current) drug therapy; D64.9 Anemia, unspecified; E78.00 Pure hypercholesterolemia, unspecified
CPT/HCPCS: 36415; 80053; 80061; 82607; 82728; 82746; 83540; 83550; 85025

== ENCOUNTER → 2025-02-12 12:38 | Outpatient (REF) | payer MEDICARE, OTHER, SELFPAY ==
[2025-02-12 12:55] VITALS: BP 148/57; BP_SYST 72
== END ==
LOC: RADI 12:38
PROVIDERS: ATTENDING PHYSICIAN Otolaryngology
DX: E04.1 Nontoxic single thyroid nodule (principal)
CPT/HCPCS: 10005; 88173

== ENCOUNTER → 2025-02-18 14:18 | Outpatient (REF) | payer MEDICARE, OTHER, SELFPAY | LOC: MRI 14:18 | PROVIDERS: ATTENDING PHYSICIAN Specialist; FAMILY PHYSICIAN Family Medicine | DX: K86.2 Cyst of pancreas (principal) | CPT/HCPCS: 74183; A9575 ==

== ENCOUNTER → 2025-02-21 11:15 | Outpatient (REF) | payer MEDICARE, OTHER, SELFPAY | LOC: HWWDC 11:15 | PROVIDERS: ATTENDING PHYSICIAN Obstetrics & Gynecology; FAMILY PHYSICIAN Family Medicine | DX: Z12.31 Encounter for screening mammogram for malignant neoplasm of breast (principal) | CPT/HCPCS: 77063; 77067 ==

== ENCOUNTER → 2025-02-24 14:39 | Outpatient (REF) | payer MEDICARE, OTHER, SELFPAY | LOC: RAD 14:39 | PROVIDERS: ATTENDING PHYSICIAN Surgery Vascular Surgery; FAMILY PHYSICIAN Family Medicine | DX: I77.3 Arterial fibromuscular dysplasia (principal) | CPT/HCPCS: 93975 ==

== ENCOUNTER → 2025-03-20 15:59 | Outpatient (REF) | payer MEDICARE, OTHER, SELFPAY ==
[2025-03-20 16:37] LABS: Hematocrit 42.3 % (37.0-47.0); Hemoglobin 14.1 g/dL (12.0-16.0); Mean Corp Hgb Conc. 33.3 g/dL (33.0-37.0); Mean Corpuscular Volume 89.6 fL (81.0-99.0); Nucleated Red Blood Cells % 0 %; Platelet Count 331 10^3/uL (130-400); Red Cell Dist. Width 14.1 % (11.5-14.5)
[2025-03-20 16:53] LABS: ALT (SGPT) 26 U/L (0-35); AST (SGOT) 33 U/L (14-36); Albumin 4.7 g/dl (3.5-5.0); Alkaline Phosphatase 87 U/L (38-126); Blood Urea Nitrogen 18 mg/dl (7-17); Calcium 9.9 mg/dl (8.4-10.2); Carbon Dioxide 28 mmol/L (22-30); Chloride 99 mmol/L (98-107); Glucose 89 mg/dl (70-99); Potassium 4.5 mmol/L (3.5-5.1); Sodium 134 mmol/L (135-145); Total Protein 7.1 g/dl (6.3-8.2); eGFR > 60.00
== END ==
LOC: REG 15:59
PROVIDERS: ATTENDING PHYSICIAN Family Medicine
DX: E78.00 Pure hypercholesterolemia, unspecified (principal); F32.4 Major depressive disorder, single episode, in partial remission; G89.4 Chronic pain syndrome; Z01.818 Encounter for other preprocedural examination; J44.9 Chronic obstructive pulmonary disease, unspecified
CPT/HCPCS: 36415; 71046; 80053; 85025

== ENCOUNTER → 2025-03-26 11:23 | Outpatient (REF) | payer MEDICARE, OTHER, SELFPAY ==
[2025-03-26 13:11] LABS: Albumin 4.5 g/dl (3.5-5.0); Blood Urea Nitrogen 20 mg/dl (7-17); Calcium 10.1 mg/dl (8.4-10.2); Carbon Dioxide 28 mmol/L (22-30); Chloride 101 mmol/L (98-107); Glucose 79 mg/dl (70-99); Potassium 5.0 mmol/L (3.5-5.1); Sodium 136 mmol/L (135-145); eGFR > 60.00
== END ==
LOC: HWLAB 11:23
PROVIDERS: ATTENDING PHYSICIAN Internal Medicine Cardiovascular Disease; FAMILY PHYSICIAN Family Medicine
DX: E87.5 Hyperkalemia (principal)
CPT/HCPCS: 36415; 80069

== ENCOUNTER 2025-03-31 06:23 | Inpatient (IN) | payer MEDICARE, OTHER, SELFPAY ==
--- NOTE | 2025-03-19 12:15 | CM ---
Addendum entered by Sandra Corey RN 03/20/25 15:42:
Demographics: one level home, lives alone
Living situation: lives alone, no family, friend MAY be available
Support Person Post Operatively: Friend, but patient needs to secure
History of
VN: No
SNF: No
Outpatient: Patient advised to make appointment for 04/02 at [facility] as per preference
Has patient purchased required equipment: walker, toilet seat
PCP: Active
Pharmacy: [facility]
Post Operative Discharge Plan: Patient is currently unsure if she is able to secure a friend to provide assistance post operatively. She will contact her friend and confirm friend will be available. CM encouraged patient to call this CM once that
has been confirmed.
Addendum entered by Sandra Corey RN 03/20/25 13:29:
CM received message from PAT RN regarding patient's support after surgery. Patient stated that she was leaving for an appointment and was unable to talk. Patient will call CM when she is ready to talk.
Original Note:
Cm left message for orthopedic [place].
[2025-03-24 11:44] LABS: Hematocrit 42.3 % (37.0-47.0); Hemoglobin 14.0 g/dL (12.0-16.0); Mean Corp Hgb Conc. 33.1 g/dL (33.0-37.0); Mean Corpuscular Volume 90.0 fL (81.0-99.0); Platelet Count 400 10^3/uL (130-400); Red Cell Dist. Width 14.2 % (11.5-14.5)
[2025-03-24 12:12] LABS: ALT (SGPT) 26 U/L (0-35); AST (SGOT) 28 U/L (14-36); Albumin 4.5 g/dl (3.5-5.0); Alkaline Phosphatase 84 U/L (38-126); Blood Urea Nitrogen 18 mg/dl (7-17); Calcium 9.6 mg/dl (8.4-10.2); Carbon Dioxide 26 mmol/L (22-30); Chloride 104 mmol/L (98-107); Glucose 109 mg/dl (70-99); Potassium 5.3 mmol/L (3.5-5.1); Sodium 136 mmol/L (135-145); Total Protein 6.9 g/dl (6.3-8.2); eGFR > 60.00
[2025-03-24 13:13] LABS: Glycohemoglobin (HgbA1c) 5.7 % (4.0-5.6)
[2025-03-24 14:08] VITALS: BMI 24.6
[2025-03-24 16:13] LABS: Vitamin D, 25-OH*** 49.0 ng/mL (30-80)
[2025-03-26 11:54] VITALS: BMI 24.6
[2025-03-31] VITALS (19 sets, daily range): BP systolic 89–134; BP diastolic 46–120; PULSE 95–103; O2SAT 94–95; BMI 24.6
[2025-03-31] MEDS: TYLENOL 650 MG PO ×3 (07:33→21:35)
[2025-03-31] MEDS: NORMOSOL-R/PLASMALYTE-A 1000 IV ×2 (07:34→13:20)
--- NOTE | 2025-03-31 07:58 | W.PN.ORTHO ---
Today's Communication / Plan
-
d/c when stable
Assessment
.
Dressing:
Clean, dry and intact.
Assessment:
Left subclavian arterial hematoma/mural thrombus
secondary to plaque. Patient is to have limb restriction with
blood pressure taken in right arm only. 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
underlying fibromuscular dysplasia also involving bilateral internal
carotid arteries with resultant balance, gait and vestibular
disturbance and ataxia. In addition, patient has orthostasis. We
will place fall precautions and utilize Midodrine if indicated.
Monitor BP closely.
Patient has multiple pulmonary comorbidities and is at risk of
postoperative hypoxic respiratory failure. She has also had a
history of recurrent Pseudomonas pneumonia and Mycobacterium
avium-intracellulare infection. She will be provided outpatient
cefadroxil oral prophylaxis. IV Decadron will be utilized b.i.d.
while inpatient with incentive spirometry and standing order
nebulizers.
Chronic pain. Patient takes tramadol on a regular basis, and
she does respond well to oxycodone which we will use for pain
control at low dosage.
Plan
.
Surgery / Date: R AUNG Pike 03/31/25
DVT Prophylaxis: Other (Eliquis 2.5mg bid + SCD)
Activity:
Out of bed.
PT/OT
Discharge Plan: Home w/ Outpatient PT
Vital Signs and Labs
.
Vital Signs and Labs:
Lab Results
03/24/25 11:14
03/24/25 11:14
Temp Pulse Resp BP Pulse Ox
98.7 F 67 16 129/61 97
03/31/25 07:27 03/31/25 07:27 03/31/25 07:27 03/31/25 07:27 03/31/25 07:27
--- NOTE | 2025-03-31 08:11 | W.DS.TRANS ---
DC Summary - [employer]
-
Discharge Instructions:
Sleep Apnea Risk Low
Discharge Diagnosis/Procedures R AUNG Pike 03/31/25
Diet As tolerated
Activity With Walker
Driving Restrictions No driving
Bathing Restrictions OK to Shower
Other Services PT
Instructions:
Stand-Alone Forms: Total Hip/Knee Replacement D/C
Changes to Home Medications: Yes
Discharge Medications:
DC Medications w/original date entered in [facility]
calcium 300 mg-D3 20 mcg-magnesium 25 mg-coppr 0.5 [id number] tablet (Caltrate-D3 Plus Minerals) 1 ea PO DAILY Supplement 02/01/22
cholecalciferol (vitamin D3) 25 mcg (1,000 unit) tablet 1,000 units PO DAILY Supplement 02/01/22
chromium nicotinate glycinate 250 mcg-herbal no.238 775 mg tablet (Green Tea (with Metabolic Enhancer Blend)) 1 ea PO DAILY Supplement 02/01/22
Held on 03/31/25. Instructions: Resume on 04/08/25.
elderberry fruit 460 mg-elderberry flower 115 mg capsule 1 ea PO DAILY Supplement 02/01/22
Held on 03/31/25. Instructions: Resume on 04/08/25.
milk thistle 150 mg capsule 1 cap PO BID Supplement 02/01/22
Held on 03/31/25. Instructions: Resume on 04/08/25.
multivitamin with folic acid 400 mcg tablet (Tab-A-Kai) 1 tab PO DAILY Supplement 02/01/22
Held on 03/31/25. Instructions: Resume on 04/08/25.
pomegranate fruit extract 250 mg capsule 250 mg PO DAILY Supplement 02/01/22
Held on 03/31/25. Instructions: Resume on 04/08/25.
sertraline 25 mg tablet 25 mg PO HS Mental Health/Anxiety 02/01/22
budesonide 0.5 mg/2 mL suspension for nebulization 0.5 mg inhalation BID 01/05/25
carboxymethylcellulose 0.5 %-glycerin 0.9 % eye drops (Refresh Optive) 1 drp BOTH EYES BID 01/05/25
ipratropium 0.5 mg-albuterol 3 mg (2.5 mg base)/3 mL nebulization soln 3 ml inhalation R TID 01/05/25
melatonin 3 mg tablet 8 mg PO HS 01/05/25
sodium chloride 3 % for nebulization 4 ml inhalation BID 01/05/25
apixaban 2.5 mg tablet (Eliquis) 2.5 mg PO BID #60 tabs 01/07/25
Fish Oil 1 dose PO DAILY 03/20/25
Held on 03/31/25. Instructions: Resume on 04/08/25.
Gundry Complete 3 Probiotic 2 tab PO DAILY 03/20/25
Held on 03/31/25. Instructions: Resume on 04/08/25.
Nac 1 dose PO DAILY 03/20/25
Held on 03/31/25. Instructions: Resume on 04/08/25.
PreserVision AREDS 1 dose PO BID 03/20/25
Held on 03/31/25. Instructions: Resume on 04/08/25.
Senolytic Activator 3 dose PO WEEKLY 03/20/25
Held on 03/31/25. Instructions: Resume on 04/08/25.
Turmeric Curcumin 1 dose PO DAILY 03/20/25
Held on 03/31/25. Instructions: Resume on 04/08/25.
ascorbic acid (vitamin C) 500 mg tablet (Vitamin C) 500 mg PO DAILY 03/20/25
atorvastatin 20 mg tablet 20 mg PO HS 03/20/25
olopatadine 0.2 % eye drops 1 drp ophthalmic (eye) DAILY 03/20/25
mupirocin 2 % topical ointment 1 applic topical BID infection prevention #1 tube 03/23/25
cefadroxil 500 mg capsule 500 mg PO BID infection prevention #14 caps 03/24/25
dexamethasone 4 mg tablet 4 mg PO BID inflammation #6 tabs 03/24/25
famotidine 20 mg tablet 20 mg PO HS GI prophylaxis #30 tabs 03/24/25
gabapentin 300 mg capsule 300 mg PO HS sleep/pain #10 caps 03/24/25
ondansetron 4 mg disintegrating tablet 4 mg PO Q6H PRN n/v #20 tabs 03/24/25
oxycodone 5 mg tablet 5 mg PO Q6H PRN 1 tab moderate pain, 2 tabs severe pain #30 tabs 03/24/25
Saccharomyces boulardii 250 mg capsule (Florastor) 250 mg PO BID #1 cap 03/31/25
acetaminophen 500 mg tablet 1,000 mg (2 x 500 mg) PO QID #0 tabs 03/31/25
docusate sodium 100 mg capsule (Colace) 100 mg PO BID stool softner #1 cap 03/31/25
magnesium hydroxide 400 mg/5 mL oral suspension (Milk of Magnesia) 30 ml PO HS PRN constipation #1 mL 03/31/25
peg 400-propylene glycol (PF) 0.4 %-0.3 % eye drops in a dropperette (Systane (PF)) 2 drp ophthalmic (eye) BID 03/31/25
sennosides 8.6 mg tablet (Senokot) 17.2 mg (2 x 8.6 mg) PO BID laxative #2 tabs 03/31/25
tramadol 50 mg tablet 50 mg PO TID #5 tabs 03/31/25
Home Medication Changes
mupirocin 2 % topical ointment 1 applic topical BID infection prevention #1 tube 03/23/25
cefadroxil 500 mg capsule 500 mg PO BID infection prevention #14 caps 03/24/25
dexamethasone 4 mg tablet 4 mg PO BID inflammation #6 tabs 03/24/25
famotidine 20 mg tablet 20 mg PO HS GI prophylaxis #30 tabs 03/24/25
gabapentin 300 mg capsule 300 mg PO HS sleep/pain #10 caps 03/24/25
ondansetron 4 mg disintegrating tablet 4 mg PO Q6H PRN n/v #20 tabs 03/24/25
oxycodone 5 mg tablet 5 mg PO Q6H PRN 1 tab moderate pain, 2 tabs severe pain #30 tabs 03/24/25
Saccharomyces boulardii 250 mg capsule (Florastor) 250 mg PO BID #1 cap 03/31/25
acetaminophen 500 mg tablet 1,000 mg (2 x 500 mg) PO QID #0 tabs 03/31/25
docusate sodium 100 mg capsule (Colace) 100 mg PO BID stool softner #1 cap 03/31/25
magnesium hydroxide 400 mg/5 mL oral suspension (Milk of Magnesia) 30 ml PO HS PRN constipation #1 mL 03/31/25
peg 400-propylene glycol (PF) 0.4 %-0.3 % eye drops in a dropperette (Systane (PF)) 2 drp ophthalmic (eye) BID 03/31/25
sennosides 8.6 mg tablet (Senokot) 17.2 mg (2 x 8.6 mg) PO BID laxative #2 tabs 03/31/25
tramadol 50 mg tablet 50 mg PO TID #5 tabs 03/31/25
Pending Results: No
[2025-03-31] MEDS: ROXICODONE 5 MG PO ×2 (11:45→21:32)
[2025-03-31] MEDS: TYLENOL PO (12:00)
[2025-03-31] MEDS: DUONEB 3 ML INH ×2 (13:38→19:46)
[2025-03-31] MEDS: ANCEF 5 IV (15:58)
[2025-03-31] MEDS: ELIQUIS 2.5 MG PO (18:07)
[2025-03-31] MEDS: ULTRAM 50 MG PO (18:08)
[2025-03-31] MEDS: PULMICORT 0.5 MG INH (19:45)
[2025-03-31] MEDS: SODIUM CHLORIDE 3% FOR INHALATION 1 VIAL INH (20:14)
[2025-03-31] MEDS: NEURONTIN 300 MG PO (21:33)
[2025-03-31] MEDS: LIPITOR 20 MG PO (21:33)
[2025-03-31] MEDS: MELATONIN 5 MG PO (21:34)
[2025-03-31] MEDS: COLACE 100 MG PO (21:34)
[2025-03-31] MEDS: SENOKOT 17.2 MG PO (21:34)
[2025-03-31] MEDS: ZOLOFT 25 MG PO (21:34)
[2025-03-31] MEDS: MELATONIN 3 MG PO (21:34)
[2025-03-31] MEDS: REFRESH EYE DROPS (PF) 1 DROPS BOTH EYES (21:35)
[2025-03-31] MEDS: DECADRON 4 MG IV (21:36)
[2025-04-01] MEDS: TYLENOL 650 MG PO ×4 (00:18→17:12)
[2025-04-01] MEDS: ANCEF 5 IV (00:19)
[2025-04-01] MEDS: ROXICODONE 2.5 MG PO (00:49)
[2025-04-01] MEDS: ROXICODONE 5 MG PO ×2 (01:51→07:55)
[2025-04-01] MEDS: BACTROBAN 2% OINTMENT 1 APPLIC NASAL ×2 (02:18→07:56)
[2025-04-01 03:00] VITALS: BP 117/65
[2025-04-01] MEDS: TYLENOL PO (04:18)
[2025-04-01] MEDS: ULTRAM 50 MG PO (05:45)
[2025-04-01 07:15] VITALS: BP 112/54
[2025-04-01] MEDS: PULMICORT 0.5 MG INH (07:25)
[2025-04-01] MEDS: SODIUM CHLORIDE 3% FOR INHALATION 1 VIAL INH (07:26)
[2025-04-01] MEDS: DUONEB 3 ML INH ×2 (07:26→14:12)
[2025-04-01] MEDS: ELIQUIS 2.5 MG PO (07:54)
[2025-04-01] MEDS: SENOKOT 17.2 MG PO (07:54)
[2025-04-01] MEDS: REFRESH EYE DROPS (PF) 1 DROPS BOTH EYES (07:54)
[2025-04-01] MEDS: COLACE 100 MG PO (07:55)
[2025-04-01] MEDS: DECADRON 4 MG IV (07:55)
--- NOTE | 2025-04-01 08:57 | CM ---
Addendum entered by Sandra Corey RN 04/01/25 12:01:
Patient is agreeable to VN. [facility] regional liaison has been updated.
Plan: Home with [facility].
Original Note:
Cm met with patient in room. Patient confirmed her outpatient PT appointment with [facility] on 04/02. Patient stated her friend Charlene will provide transportation and supervision. Patient stated she is looking forward to outpatient PT to 'get going'.
PLAN: Home with outpatient PT.
--- NOTE | 2025-04-01 10:11 | W.PN.ORTHO ---
Today's Communication / Plan
-
due to difficulty with focus re hip precautions-discussed with OT 1 week of home care prior to OP--d/c
Assessment
.
Distal Motor Intact: Yes
Dressing:
Clean, dry and intact.
Assessment:
Left subclavian arterial hematoma/mural thrombus
secondary to plaque. Patient is to have limb restriction with
blood pressure taken in right arm only. 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
underlying fibromuscular dysplasia also involving bilateral internal
carotid arteries with resultant balance, gait and vestibular
disturbance and ataxia. In addition, patient has orthostasis.
--Fall precautions+ Midodrine if indicated
--BP stable.
Patient has multiple pulmonary comorbidities and is at risk of
postoperative hypoxic respiratory failure. She has also had a
history of recurrent Pseudomonas pneumonia and Mycobacterium
avium-intracellulare infection. She will be provided outpatient
cefadroxil oral prophylaxis.
--IV Decadron +incentive spirometry and standing order nebs
--O2 sat stable on RA.
Chronic pain. Patient takes tramadol on a regular basis, and
she does respond well to oxycodone which we will use for pain
control at low dosage.
--pain well controlled without over sedation
Plan
.
Surgery / Date: R AUNG Pike 03/31/25
DVT Prophylaxis: Other (Eliquis)
Activity:
Out of bed.
PT/OT
Discharge Plan: Home w/ VN
Subjective
.
.:
Patient resting comfortably.
Vital Signs and Labs
.
Vital Signs and Labs:
Lab Results
03/24/25 11:14
03/24/25 11:14
Temp Pulse Resp BP Pulse Ox
97.6 F 67 16 112/54 95
04/01/25 07:15 04/01/25 07:28 04/01/25 07:28 04/01/25 07:15 04/01/25 07:28
Non-invasive Hgb result: 11.8
Physical Exam
-
HEENT: No pallor, cyanosis, or jaundice. Throat clear.
NECK: Supple. No JVD.
RESPIRATORY: Lungs clear to auscultation.
CVS: S1, S2 normal. RRR.� No murmur, rub or gallop.
ABDOMEN: Soft, non-tender. No distension. BS+/normal.
EXTREMITIES: strength equal, no calf pain with palpation
SALES TRAINING MANAGER: AOx3. No focal deficits. agile tester grossly intact
-obsessive with lack of focus--present pre-op--at baseline
[2025-04-01 10:53] VITALS: BP 122/61
[2025-04-01 11:05] VITALS: BP 120/64
[2025-04-01 11:36] VITALS: BP 122/61; PULSE 78
--- NOTE | 2025-04-01 12:42 | VNURNOTE ---
Home Health Liaison spoke with patient to discuss [facility] nurse/therapy, visits, schedule and homebound status. Patient is agreeable and understands that visits at home will be 2-3 x per week to assess and teach medical management.
Patient is aware that [facility] will contact them for start of care in 1-2 days after discharge from . Provided contact number for [facility].
PM [facility] referral completed in [facility].
[2025-04-01 15:10] VITALS: BP 121/66
--- NOTE | 2025-04-01 16:26 | VNURNOTE ---
Long discussion with patient and DC coordinator Berta. Patient yelling and angry that she is being recommended HH- she wanted to keep her outpt PT appt that was originally made for 04/02. Reviewed PT, OT recs with her. Updated Dinah Tovar via
T.T. that pt was refusing a week of PT. Patient finally agreeable to 2 days of home health. Dinah Tovar updated. [facility] Intake updated.
== END 2025-04-01 17:18 | disposition home health service (06) | DRG 470 ==
LOC: 2 SOUTH 06:23
PROVIDERS: ADMITTING PHYSICIAN Specialist; FAMILY PHYSICIAN Family Medicine
PROC: 0SR904A Replacement of Right Hip Joint with Ceramic on Polyethylene Synthetic Substitute, Uncemented, Open Approach (ICD-10-PCS; 2025-03-31)
DX: M16.11 Unilateral primary osteoarthritis, right hip (principal); E44.1 Mild protein-calorie malnutrition; E78.5 Hyperlipidemia, unspecified; R26.0 Ataxic gait; J47.9 Bronchiectasis, uncomplicated; J44.9 Chronic obstructive pulmonary disease, unspecified; F32.A Depression, unspecified; F41.9 Anxiety disorder, unspecified; I77.3 Arterial fibromuscular dysplasia; I77.1 Stricture of artery; E78.00 Pure hypercholesterolemia, unspecified; F32.4 Major depressive disorder, single episode, in partial remission; Z87.891 Personal history of nicotine dependence; G89.4 Chronic pain syndrome; M81.0 Age-related osteoporosis without current pathological fracture; I70.0 Atherosclerosis of aorta; G47.00 Insomnia, unspecified; I65.23 Occlusion and stenosis of bilateral carotid arteries; Z86.73 Personal history of transient ischemic attack (TIA), and cerebral infarction without residual deficits; Z79.899 Other long term (current) drug therapy; Z79.01 Long term (current) use of anticoagulants; Z79.891 Long term (current) use of opiate analgesic; Z68.24 Body mass index [BMI] 24.0-24.9, adult
CPT/HCPCS: 36415; 73502; 80053; 82306; 83036; 85027; 87070; 93005; 94640; 97110; 97116; 97162; 97167; 97530; 97535; C1713; C1776

== ENCOUNTER 2025-04-25 18:52 | Emergency (ER) | payer MEDICARE, OTHER, SELFPAY ==
[2025-04-25 18:54] VITALS: BP 162/101
[2025-04-25 19:34] LABS: Hematocrit 38.8 % (37.0-47.0); Hemoglobin 12.6 g/dL (12.0-16.0); Mean Corp Hgb Conc. 32.5 g/dL (33.0-37.0); Mean Corpuscular Volume 87.8 fL (81.0-99.0); Nucleated Red Blood Cells % 0 %; Platelet Count 496 10^3/uL (130-400); Red Cell Dist. Width 14.2 % (11.5-14.5)
[2025-04-25 19:41] LABS: ALT (SGPT) 32 U/L (0-35); AST (SGOT) 34 U/L (14-36); Albumin 3.9 g/dl (3.5-5.0); Alkaline Phosphatase 102 U/L (38-126); Blood Urea Nitrogen 14 mg/dl (7-17); Calcium 9.3 mg/dl (8.4-10.2); Carbon Dioxide 29 mmol/L (22-30); Chloride 100 mmol/L (98-107); Glucose 100 mg/dl (70-99); Potassium 4.6 mmol/L (3.5-5.1); Sodium 134 mmol/L (135-145); Total Protein 6.4 g/dl (6.3-8.2); eGFR > 60.00
[2025-04-25 23:34] VITALS: BP 147/75
[2025-04-25] MEDS: VIBRAMYCIN 100 MG PO (23:42)
[2025-04-25] MEDS: DUONEB 3 ML INH (23:42)
--- NOTE | 2025-04-25 23:42 | ED.GENMED ---
History of Present Illness
General
Chief Complaint: Cough
Source: patient and records
Exam Limitations: none
Time Seen by Provider: 04/25/25 23:15
Nursing documentation reviewed up to this point in time: agreed with
History of Present Illness
History of Present Illness:
84-year-old female cough, some black phlegm earlier today thinks it could have been a vitamin that she takes for her eyes but she is not sure no fever she is wheezing has not had her nebulizer for her emphysema, no blood in her sputum, she feels
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
Past History
Past History
ED Past Medical History: COPD, Hypercholesterolemia and Other (osteopenia, cholelithiasis, atrioseptal aneurysm, memory loss, COVID-19, UTI, meningitis 1953, Pseudomonas infection, episodic blurred vision beginning 2018)
ED Past Surgical History: Appendectomy, Cholecystectomy, Orthopedic (bilateral knee replacement, epidural steroid injections, lumbar 2019; right leg fracture) and Other (negative thyroid biopsy 2017, cataract extractions, MILD procedure)
Social History
Tobacco: Former smoker
Alcohol: Occasional
Drug: None
Personal: Single
Living: alone
Employment: Retired
Family History
Family History: Other (reviewed and noncontributory); Negative CAD
Review of Systems
Review of Systems
All Other Systems: Not applicable
Constitutional: Denies fever or fatigue
Respiratory: Reports cough and other (Coughing up black); Denies hemoptysis or trouble breathing
: Reports no symptoms
Musculoskeletal: Reports no symptoms
Skin: Reports no symptoms
Neurological: Reports no symptoms
Phy Exam
Physical Exam
Physical Exam:
Physical Exam
General: no apparent distress, not acutely ill
Neck: No jaundice
Heart: Regular
Lungs: Wheeze bilaterally
Abdomen: Nontender
Neuro: alert and oriented. no focal neurological deficits
Skin: no rash
Psychiatric: well kept. interactive and cooperative
Extremities: no edema.
Course
Orders/Labs/Results
Orders:
Orders
04/25/25 19:00
CXR2 [CR Chest - 2 Views ] Urgent
Comment:
Reason For Exam: worsening cough, dark sputum
04/25/25 19:14
CBC/With Diff [Complete Blood Count/With Diff] Urgent
CMP [Comprehensive Metabolic Panel] Urgent
04/25/25 23:34
Doxycycline [Vibramycin] 100 mg PO NOW STA
Ipratropium/Albuterol Sulfate [Duoneb] 3 ml INH R NOW STA
Abnormal Lab Results
04/25/25
19:14
MCHC 32.5 L g/dL
(33.0-37.0)
Plt Count 496 H 10^3/uL
(130-400)
Absolute Monos (auto) 0.7 H 10^3/uL
(0.1-0.6)
Immature Gran % 0.6 H %
(0-0.5)
Lymphocytes % 20.1 L %
(20.5-51.1)
Monocytes % 10.1 H %
(1.7-9.3)
Sodium 134 L mmol/L
(135-145)
Glucose 100 H mg/dl
(70-99)
04/25/25 19:14
04/25/25 19:14
Vital Signs
Initial and Last Documented VS:
Initial Vital Signs
Temp Pulse Resp BP Pulse Ox
97.9 F 102 26 162/101 96
04/25/25 18:54 04/25/25 18:54 04/25/25 18:54 04/25/25 18:54 04/25/25 18:54
Last Documented Vital Signs
Temp Pulse Resp BP Pulse Ox
97.9 F 102 26 147/75 96
04/25/25 18:54 04/25/25 18:54 04/25/25 18:54 04/25/25 23:34 04/25/25 23:43
MDM/Problems Addressed
Differential Diagnosis Includes:
Pneumonia bronchitis doubt PE anticoagulated, no hemoptysis
MDM/Problems Addressed:
Cough
Chronic conditions affecting care:
COPD
Chronic conditions affecting care: COPD
Acute Exacerbation and/or Progression of Chronic Illness: COPD
*Radiology
Radiology exam reviewed: radiology read reviewed
*Pulse Oximetry
SaO2: 96
Oxygen Mode of Delivery: Room air
Patient hypoxic: no
*Critical Care Note
Total Time (30-74mins, 75-104mins- exclusive of procedures): Not Applicable
ED Attending Note
-
Portions of this chart may have been created with voice recognition software.� Occasional wrong word or��sound alike� substitutions may have occurred due to the inherent limitations of voice recognition software.
Discharge Plan
Departure
Patient Disposition: Home (Routine Discharge)
Date of Disposition: 04/25/25
Time of Disposition: 23:35
Patient with high blood pressure during this ER visit?: No
Condition: Good
Discharge Problem:
Acute bronchitis
Instructions: Acute Bronchitis, Adult (DC)
Prescriptions:
New
doxycycline monohydrate 100 mg capsule
100 mg PO BID Qty: 14 0RF
albuterol sulfate 2.5 mg /3 mL (0.083 %) solution for nebulization
2.5 mg inhalation TID PRN (Reason: shortness of breath or wheezing) Qty: 180 0RF
No Action
sertraline 25 MG tablet
25 mg PO HS
cholecalciferol (vitamin D3) 1,000 UNITS tablet
1,000 units PO DAILY
multivitamin with folic acid [Tab-A-Kai] 1 TABLET tablet
1 tab PO DAILY
milk thistle 150 MG capsule
1 cap PO BID
pomegranate fruit extract 250 MG capsule
250 mg PO DAILY
Green Tea (w/Met.Enhan.Blend) 1 EACH tablet
1 ea PO DAILY
Caltrate-D3 Plus Minerals 1 EACH tablet
1 ea PO DAILY
elderberry fruit and flower 1 EACH capsule
1 ea PO DAILY
ipratropium-albuterol 0.5 mg-3 mg(2.5 mg base)/3 mL Solution For Nebulization
3 ml INHALATION R TID
sodium chloride 3 % Solution For Nebulization
4 ml INHALATION BID
budesonide 0.5 mg/2 mL Suspension For Nebulization
0.5 mg INHALATION BID
Refresh Optive 0.5-0.9 % Drops
1 drp BOTH EYES BID
melatonin 3 mg Tablet
8 mg PO HS
Eliquis 2.5 mg Tablet
2.5 mg PO BID Qty: 60 5RF
atorvastatin 20 mg Tablet
20 mg PO HS
ascorbic acid (vitamin C) [Vitamin C] 500 mg Tablet
500 mg PO DAILY
olopatadine 0.2 % Drops
1 drp OPHTHALMIC (EYE) DAILY
Fish Oil
1 dose PO DAILY
Gundry Complete 3 Probiotic
2 tab PO DAILY
PreserVision AREDS
1 dose PO BID
Senolytic Activator
3 dose PO WEEKLY
Turmeric Curcumin
1 dose PO DAILY
Nac
1 dose PO DAILY
mupirocin 2 % ointment
1 applic topical BID Qty: 1 0RF
Patient Comments:
started treatment on monday03/28/25 and completed BID, last took at home 03/31/25 in am
cefadroxil 500 mg capsule
500 mg PO BID Qty: 14 0RF
Rx Instructions:
*Take w/ food
*Take w/ probiotic
*POST-OP USE
dexamethasone 4 mg tablet
4 mg PO BID Qty: 6 0RF
Rx Instructions:
take with food
post-op use only
famotidine 20 mg tablet
20 mg PO HS Qty: 30 0RF
Rx Instructions:
post-op
gabapentin 300 mg capsule
300 mg PO HS Qty: 10 0RF
Patient Comments:
Patient stated that she did not pick this medication up.
Rx Instructions:
*POST-OP USE ONLY
ondansetron 4 mg tablet,disintegrating
4 mg PO Q6H PRN (Reason: n/v) Qty: 20 0RF
Rx Instructions:
take 1/2h b/f pain med if recurrent nausea
allow to dissolve in mouth w/o water
oxycodone 5 mg tablet
5 mg PO Q6H PRN (Reason: 1 tab moderate pain, 2 tabs severe pain) Qty: 30 0RF
Rx Instructions:
Ongoing therapy
POST-OP USE ONLY
Systane (PF) 0.4-0.3 % Dropperette
2 drp OPHTHALMIC (EYE) BID
docusate sodium [Colace] 100 mg capsule
100 mg PO BID Qty: 1 0RF
Saccharomyces boulardii [Florastor] 250 mg capsule
250 mg PO BID Qty: 1 0RF
magnesium hydroxide [Milk of Magnesia] 400 mg/5 mL suspension
30 ml PO HS PRN (Reason: constipation) Qty: 1 0RF
Rx Instructions:
CONTINUE colace W/senokot-if no bowel movement 1 day POST-OP -add milk of mag
sennosides [Senokot] 8.6 mg tablet
17.2 mg PO BID Qty: 2 0RF
tramadol 50 mg Tablet
50 mg PO TID Qty: 5 0RF
acetaminophen 500 mg Tablet
1,000 mg PO QID Qty: 0 0RF
Referrals:
Kim,Pinak S., MD [Active, Pulmonary Medicine] - Next open appointment
Rylee Whitmore MD [Family Provider, Family Practice]
Interventions
Interventions:
*Risk Screen - Suicide Last Done: 04/25/25 18:54
*General Assessment Last Done: 04/25/25 18:54
*Neglect/Abuse Screening Last Done: 04/25/25 18:54
*ED- Fall Risk Assessment Last Done: 04/25/25 23:47
*ED COVID-19 Vaccine History Last Done: 04/25/25 23:47
ED- Pulmonary Assessment Last Done: 04/25/25 23:45
Discharge Date and Time
Print Language: [id number]
[2025-04-26] VITALS: BP 144/73
== END 2025-04-26 00:30 | disposition home or self-care (01) ==
LOC: EMR 18:52
PROVIDERS: Emergency Medicine; EMERGENCY PHYSICIAN Emergency Medicine; FAMILY PHYSICIAN Family Medicine
DX: J20.9 Acute bronchitis, unspecified (principal); J44.0 Chronic obstructive pulmonary disease with (acute) lower respiratory infection; E78.00 Pure hypercholesterolemia, unspecified; Z87.891 Personal history of nicotine dependence; Z86.61 Personal history of infections of the central nervous system
CPT/HCPCS: 99284; 94640; 71046; 80053; 85025

== ENCOUNTER → 2025-05-19 13:32 | Outpatient (REF) | payer MEDICARE, OTHER, SELFPAY | LOC: RAD 13:32 | PROVIDERS: ATTENDING PHYSICIAN Surgery Vascular Surgery; FAMILY PHYSICIAN Family Medicine | DX: I77.1 Stricture of artery (principal) | CPT/HCPCS: 93931 ==

== ENCOUNTER → 2025-07-30 13:55 | Outpatient (REF) | payer MEDICARE, OTHER, SELFPAY | LOC: HWRCS 13:55 | PROVIDERS: ATTENDING PHYSICIAN Internal Medicine Critical Care Medicine; FAMILY PHYSICIAN Family Medicine | DX: R09.02 Hypoxemia (principal) | CPT/HCPCS: 93306 ==

== ENCOUNTER → 2025-08-01 07:28 | Outpatient (REF) | payer MEDICARE, OTHER, SELFPAY | LOC: RAD 07:28 | PROVIDERS: ATTENDING PHYSICIAN Internal Medicine Critical Care Medicine; FAMILY PHYSICIAN Family Medicine | DX: I77.1 Stricture of artery (principal) | CPT/HCPCS: 71046; 93923; 93930 ==